=== PATIENT | female | born 1940 | race Caucasian/White ===

== ENCOUNTER → 2017-08-11 | Outpatient (CLI) | payer OTHER ==
--- NOTE | 2017-08-13 13:56 | MG ---
Examination: Bilateral screening mammogram. Clinical history: Routine screening. Technique: Digital CC and MLO views of both breasts were obtained. Computer aided detection analysis was performed and used during the interpretation. Comparison: 08/06/2016. Findings: The breasts are heterogeneously dense, reducing the sensitivity of mammography. Benign-appearing calc ifications and vascular calcifications are noted in the breasts bilaterally. The patient returned for a repeat MLO view of the right breast due to high-density material in the mckeon perior portion of the right breast. Following cleansing of the right axilla, the high-density materia l is no longer visualized. Findings are consistent with deodorant artifact. No suspicious mass, area of architectural distortion or suspicious cluster of microcalcifications is noted. Impression: 1. No mammographic evidence of malignancy. BI-RADS category 2-benign findings. Recommend routine annual screening mammogram. Diagnostic CAD was utilized and reviewed. * 0 (ZERO) - ASSESSMENT INCOMPLETE; ADDITIONAL IMAGING IS NEEDED. * 0C - ASSESSMENT INCOMPLETE, NEEDS ADDITIONAL IMAGING EVALUATION AND/OR PRIOR MAMMOGRAMS FOR COMPARI SON. * 1/1 (ONE) - NEGATIVE. * 2/II (TWO) - BENIGN FINDINGS. * 3/III (THREE) - PROBABLY BENIGN FINDING; SHORT INTERVAL FOLLOW-UP SUGGESTED. * 4/IV (FOUR) - SUSPICIOUS ABNORMALITY; BIOPSY SHOULD BE CONSIDERED. * 5/V - HIGHLY SUSPICIOUS OF MALIGNANCY; BIOPSY SHOULD BE PERFORMED. * 6/IV - KNOWN BIOPSY PROVEN MALIGNANCY-APPROPRIATE ACTION SHOULD BE TAKEN. A NEGATIVE X-RAY REPORT SHOULD NOT DELAY BIOPSY IF A DOMINANT OR CLINICALLY SUSPICIOUS MASS IS PRESENT; 4 TO 8 PERCENT OF CANCERS ARE NOT IDENTIFIED BY X-RAY. A NEGATIVE REPORT MAY REINFORCE THE CLINICAL IMPRESSION. ADENOSIS AND DENSE BREASTS MAY OBSCURE AN UNDERLYING NEOPLASM. Reported By:
== END ==
LOC: RAD 09:23
PROVIDERS: ATTEND Internal Medicine
DX: Z12.31 Encounter for screening mammogram for malignant neoplasm of breast (principal)
CPT/HCPCS: 77067

== ENCOUNTER 2020-04-18 15:48 | Inpatient (IN) ==
[2020-04-18 16:18] VITALS: BMI 20.3
--- NOTE | 2020-04-18 19:12 | DR.GENAD ---
HPI - PCP Primary Care Physician: diane - Complaint/Symptoms Chief Complaint Doctors Comments: Patient states she tested positive for the COVID virus six days ago and she has been taking her medicines but has been weak with a bitter taste in her mouth and problems smelling her food. States she has been taking zithromax, Vit C, Vit D3, Plaquenil and medrol dose pack. She is a patient of Dr. Milton and states her is in the hospital on oxygen with COVID presently. Patient denies tobacco, alcohol or drug usage. She has a cough at times but denies SOb, chest pain, nausea, vomiting or diarrhea. Chief Complaint:: pt tested positive for covid last week c/o bad taste in mouth and feeling weak - COVID-19 Coronavirus risk:travel/contact w/high risk person: Yes Has patient experienced Coronavirus symptoms: Yes Coronavirus symptoms experienced: Fever, Coughing, Shortness of Breath - Source History Provided: Patient - Mode of Arrival Mode of Arrival: Ambulatory - Timing Onset of Chief Complaint: 04/10/20 Came on: Gradually - Duration Duration: Constant How lon Duration: Days - Location Location: weak, generalized - Severity Severity: Moderate - Modifying Factors Worsens:: nothing Improves:: nothing PMH - PMH Past Medical History: Yes Past Medical History: Dyslipidemia, Hypertension Past Surgical History: No - Family History History of Family Medical Conditions: No - Social History Does any household member use tobacco: No Alcohol Use: None Do you use any recreational Drugs:: No Lives With: Family - Travel Risk Coronavirus risk:travel/contact w/high risk person: Yes Has patient experienced Coronavirus symptoms: Yes Coronavirus symptoms experienced: Fever, Coughing, Shortness of Breath - infectious screening In the last 2 months have you had wt loss of >10#?: NO Have you had fever, night sweats or hemotysis?: No Have you traveled outside the country in the last 6 months?: No Isolation: Droplet ROS - Review of Systems Constitutional: No Symptoms Reported, Weakness, Loss of Appetite Eyes: No Symptoms Reported ENTM: No Symptoms Reported Respiratoy: No Symptoms Reported, Dry Cough Cardiovascular: No Symptoms Reported. negative: See HPI, Chest Pain, Edema, Palpitations, Syncope, Cyanosis, Skin Mottling, Other Gastrointestinal/Abdominal: No Symptoms Reported. negative: See HPI, Abdominal Pain, Constipation, Diarrhea, Nausea, Vomiting, Food Intolerance, Other Genitourinary: No Symptoms Reported. negative: See HPI, Discharge, Dysuria, Frequency, Hematuria, Pain, Bleeding, Other Neurological: No Symptoms Reported Musculoskeletal: No Symptoms Reported Integumentary: No Symptoms Reported Hematologic/Lymphatic: No Symptoms Reported Endocrine: No Symptoms Reported Psychiatric: No Symptoms Reported. negative: See HPI, Anxiety, Depression, Hallucinations, Excessive crying, Suicidal, Other PE - General Limitations: No Limitations General Appearance: Alert, In No Apparent Distress - Head Head Exam: Normal Inspection, Atraumatic, Normocephalic - Eyes Eye exam: Normal Appearance, PERRL, EOMI. negative: Scleral Icterus, Conjunctival Injection, Nystagmus, Miosis, Mydrasis, Periorbital Swelling, Periorbital Tenderness, Other - ENT ENT Exam: Normal Exam, Normal Oropharynx, Normal External Ear Exam, Mucous Membranes Moist, TM's Normal Bilaterally External Ear Exam: Normal External Inspection TM/Canal Exam: Bilateral Normal Nose Exam: Normal Nose Exam Mouth Exam: Normal Inspection. negative: Drooling, Trismus, Lip Swelling, Tongue Elevation, Tongue Swelling, Laceration, Other Throat Exam: Normal Inspection. negative: Tonsillar Erythema, Tonsillomegaly, Tonsillar Exudate, R Peritonsillar Mass, L Peritonsillar Mass, Muffled Voice, Other - Neck Neck Exam: Normal Inspection, Full ROM, Trachea Midline. negative: Tenderness, Meningismus, Lymphadenopathy, Thyromegaly, Other - Chest Chest Inspection: Normal Inspection, Symmetric Chest Wall Rise. negative: Tenderness, Rash, Abscess, Other - Respiratory Respiratory Exam: Normal Lung Sounds Bilat Respiratory Exam: Bilateral Clear to Auscultation - Cardiovascular Cardiovascular Exam: Regular Rate, Normal Rhythm, Normal Heart Sounds. negativ e: Bradycardia, Tachycardia, Irregular Rhythm, Systolic Murmur, Diastolic Murmur, Rubs, Gallop, Clicks, JVD, +S1, +S2, +S3, +S4, Other - Abdominal Exam Abdominal Exam: Normal Inspection, Normal Bowel Sounds, Soft. negative: Distention, Tenderness, Guarding, Rebound, Rigidity, Dimnished Bowel Sounds, Hyperactive Bowel Sounds, Hypoactive Bowel Sounds, Organomegaly, Trauma, Incision, Ascites, Mass, Bruit, Pulsatile Mass, Hernia, Other Abdominal Tenderness: negative: RUQ, RLQ, LUQ, LLQ, Epigastrium, Suprapubic, Diffuse, Mild, Moderate, Severe, Other - Extremities Extremities Exam: Normal Inspection, Full ROM, Normal Capillary Refill. negative: Tenderness, Edema, Joint Swelling, Calf Tenderness, Other - Back Back Exam: Normal Inspection, Full ROM. negative: Tenderness, (R) CVA Tenderness, (L) CVA Tenderness, Muscle Spasm, Paraspinal Tenderness, Vertebral Tenderness, Rashes, (R) Sciatic Notch Tenderness, (L) Sciatic Notch Tendern, (R) Straight Leg Raise, (L) Straight Leg Raise, Other - Neurologic Neurological Exam: Alert, Oriented X3, CN II-XII Intact, Normal Gait, Reflexes Normal - Psychiatric Psychiatric Exam: Normal Affect, Normal Mood. negative: Depressed, Agitated, Anxious, Flat Affect, Manic, Homicidal Ideation, Suicidal Ideation, Other - Skin Skin Exam: Warm, Dry, Intact, Normal Color. negative: Rash, Cyanosis, Di aphoresis, Erythema, Pallor, Mottled, Other - Vital Signs Vitals: Temperature 99.9 F Pulse Rate 87 Respiratory Rate 20 Blood Pressure 132/62 O2 Sat by Pulse Oximetry 88 ROR - Labs Reviewed Result Diagrams: 04/20/20 04:05 04/20/20 04:05 - Labs Reviewed Laboratory: WBC 10.1 X10^3/uL (3.6-10.0) H 04/18/20 20:10 RBC 4.19 X10^6/uL (3.5-5.4) 04/18/20 20:10 Hgb 14.2 g/dL (12.0-16.0) 04/18/20 20:10 Hct 40.7 % (36.0-47.0) 04/18/20 20:10 MCV 97.2 fL (80.0-100.0) 04/18/20 20:10 MCH 33.8 pg (27.0-34.0) 04/18/20 20:10 MCHC 34.8 g/dL (33.0-35.0) 04/18/20 20:10 RDW 12.6 % (11.6-16.5) 04/18/20 20:10 Plt Count 237 X10^3/uL (150.0-450.0) 04/18/20 20:10 MPV 7.1 fL (7.4-11.0) L 04/18/20 20:10 Neut % (Auto) 76.6 % (42.0-75.0) H 04/18/20 20:10 Lymph % (Auto) 17.2 % (21.0-51.0) L 04/18/20 20:10 [place] % (Auto) 5.9 % (0.0-13.0) 04/18/20 20:10 Eos % (Auto) 0.0 % (0.9-2.9) L 04/18/20 20:10 Baso % (Auto) 0.3 % (0.2-1.0) 04/18/20 20:10 Neut # (Auto) 7.7 x10^3/uL (2.2-4.8) H 04/18/20 20:10 Lymph # (Auto) 1.7 X10^3/uL (1.3-2.9) 04/18/20 20:10 [place] # (Auto) 0.6 x10^3/uL (0.3-0.8) 04/18/20 20:10 Eos # (Auto) 0.0 x10^3/uL (0.0-0.2) 04/18/20 20:10 Baso # (Auto) 0.0 X10^3/uL (0.0-0.1) 04/18/20 20:10 Absolute Nucleated RBC 0.1 /100WBC 04/18/20 20:10 PT 13.6 SECONDS (11.8-14.3) 04/18/20 20:10 INR Target Range - 04/18/20 20:10 INR 1.07 (0.8-1.3) 04/18/20 20:10 APTT 37.1 SECONDS (22.9-36.5) H 04/18/20 20:10 PTT Comment - 04/18/20 20:10 Sample Site Lb 04/18/20 20:25 ABG pH 7.450 (7.35-7.45) 04/18/20 20:25 ABG pCO2 42.0 mmHg (35.0-45.0) 04/18/20 20:25 ABG pO2 54.0 mmHg (80.0-100.0) L 04/18/20 20:25 ABG HCO3 29.2 mmol/L (22-26) H 04/18/20 20:25 ABG O2 Saturation 89.0 % (90-100) L 04/18/20 20:25 ABG Base Excess 4.7 mmol/L (-2.0-2.0) H 04/18/20 20:25 Bandar Test N/a 04/18/20 20:25 A-a Gradient 43.0 mmHg 04/18/20 20:25 FiO2 21.0 04/18/20 20:25 Blood Gas Comments Fatemeh well ae 04/18/20 20:25 Opioid - Opioid Risk Tool Age (Giovany box if 16-45): No History of Preadolescent Sexual Abuse: No Total: 0 Total Score Risk Category: Low Risk - Diagnosis Discharge Problem: Bilateral interstitial pneumonia, COVID-19, Hypoxia Sepsis Qualifiers: Sepsis type: sepsis due to unspecified organism Sepsis acute organ dysfunction status: with acute organ dysfunction Severe sepsis acute organ dysfunction type: acute respiratory failure Acute respiratory failure type: with hypoxia Severe sepsis shock status: without septic shock Qualified Code(s): A41.9 - Sepsis, unspecified organism - Discharge Plan Disposition: ADMITTED INPATIENT Condition: Stable
[2020-04-18] MEDS ORDERED: NS 1000 ML 1,000 ML IV SCH (20:00)
--- NOTE | 2020-04-18 20:10 | RAD ---
CHEST, 1 VIEWHISTORY: covid chest pain sobStudy: Single view of the chest.Comparison:NoneFindings:The cardiomediastinal silhouette is normal. Bilateral interstitial prominence, possible early alveolar infiltrates. No focal consolidations, pleural effusions or pneumothorax. Osseous structures demonstrate no acute abnormality. Bilateral hyper expansion.IMPRESSION:1. Bilateral interstitial prominence and early alveolar infiltrates. Findings may represent atypical infection, including viral etiologies.Electronically signed by: DAWSON CHARLES (Apr 18, 2020 20:09:20)
[2020-04-18 20:17] LABS: BASOPHILS % (AUTO) 0.3 % (0.2-1.0); HEMATOCRIT 40.7 % (36.0-47.0); HEMOGLOBIN 14.2 g/dL (12.0-16.0); LYMPHOCYTES # (AUTO) 1.7 X10^3/uL (1.3-2.9); LYMPHOCYTES % (AUTO) 17.2 % (21.0-51.0); MEAN CORPUSCULAR HEMOGLOBIN 33.8 pg (27.0-34.0); MEAN CORPUSCULAR HGB CONC 34.8 g/dL (33.0-35.0); MEAN CORPUSCULAR VOLUME 97.2 fL (80.0-100.0); MEAN PLATELET VOLUME 7.1 fL (7.4-11.0); MONOCYTES # (AUTO) 0.6 x10^3/uL (0.3-0.8); MONOCYTES % (AUTO) 5.9 % (0.0-13.0); NEUTROPHILS # (AUTO) 7.7 x10^3/uL (2.2-4.8); NEUTROPHILS % (AUTO) 76.6 % (42.0-75.0); PLATELET COUNT 237 X10^3/uL (150.0-450.0); RED BLOOD COUNT 4.19 X10^6/uL (3.5-5.4); RED CELL DISTRIBUTION WIDTH 12.6 % (11.6-16.5); WHITE BLOOD COUNT 10.1 X10^3/uL (3.6-10.0)
[2020-04-18 20:32] LABS: ABG BASE EXCESS 4.7 mmol/L (-2.0-2.0); ABG HCO3 29.2 mmol/L (22-26)
[2020-04-18 20:33] LABS: BLOOD UREA NITROGEN 22 mg/dL (7-18); CALCIUM 8.6 mg/dL (8.5-10.1); CARBON DIOXIDE 30.2 mmol/L (21-32); CHLORIDE 99 mmol/L (98-107); CREATININE 0.97 mg/dL (0.55-1.02); SODIUM 136 mmol/L (136-145); TROPONIN I < 0.02 ng/mL (0-1.5); eGFR NON BLACK RACES 59 (>60)
[2020-04-18 20:47] LABS: ALANINE AMINOTRANSFERASE 43 Units/L (12-78); ALKALINE PHOSPHATASE 62 Units/L (46-116); ASPARTATE AMINO TRANSFERASE 42 Units/L (15-37); CKMB % 0.8 % (<4); COR CA(FOR HYPOALB) 9.4 mg/dL (8.5-10.1); CREATINE KINASE 131 Units/L (26-192); CREATINE KINASE MB < 1.0 ng/mL (0-4.0); TOTAL PROTEIN 6.9 g/dL (6.4-8.2)
[2020-04-18] MEDS ORDERED: NS 1000 ML 1,000 ML ONE (21:29)
[2020-04-18] MEDS ORDERED: ROCEPHIN VIAL 1 GRAM 1 G in NS 100 ML IV + SPIKE MINIBAG* 100 ML IV SCH (23:44)
[2020-04-19] MEDS: NS 1000 ML 1,000 ML IV SCH (01:21)
[2020-04-19] MEDS: ASCORBIC ACID INJ MULTI-DOSE VIAL 1,500 MG in NS 100 ML IV 100 ML IV SCH ×2 (03:13→09:05)
[2020-04-19] MEDS ORDERED: DUONEB 0.5 MG/3 MG (3 mL) NEB ONE (03:56)
[2020-04-19 05:24] LABS: BASOPHILS % (AUTO) 0.2 % (0.2-1.0); HEMATOCRIT 34.9 % (36.0-47.0); HEMOGLOBIN 12.2 g/dL (12.0-16.0); LYMPHOCYTES # (AUTO) 1.9 X10^3/uL (1.3-2.9); LYMPHOCYTES % (AUTO) 21.7 % (21.0-51.0); MEAN CORPUSCULAR HEMOGLOBIN 34.4 pg (27.0-34.0); MEAN CORPUSCULAR VOLUME 98.1 fL (80.0-100.0); MEAN PLATELET VOLUME 8.2 fL (7.4-11.0); MONOCYTES # (AUTO) 0.5 x10^3/uL (0.3-0.8); MONOCYTES % (AUTO) 6.1 % (0.0-13.0); NEUTROPHILS # (AUTO) 6.1 x10^3/uL (2.2-4.8); PLATELET COUNT 208 X10^3/uL (150.0-450.0); RED BLOOD COUNT 3.56 X10^6/uL (3.5-5.4); RED CELL DISTRIBUTION WIDTH 12.3 % (11.6-16.5); WHITE BLOOD COUNT 8.5 X10^3/uL (3.6-10.0)
[2020-04-19 05:37] LABS: ALANINE AMINOTRANSFERASE 35 Units/L (12-78); ALBUMIN 2.2 g/dL (3.4-5.0); ALKALINE PHOSPHATASE 47 Units/L (46-116); ASPARTATE AMINO TRANSFERASE 38 Units/L (15-37); BLOOD UREA NITROGEN 18 mg/dL (7-18); CALCIUM 7.8 mg/dL (8.5-10.1); CARBON DIOXIDE 28.3 mmol/L (21-32); CHLORIDE 103 mmol/L (98-107); COR CA(FOR HYPOALB) 9.2 mg/dL (8.5-10.1); CREATININE 0.83 mg/dL (0.55-1.02); SODIUM 138 mmol/L (136-145); TOTAL PROTEIN 5.5 g/dL (6.4-8.2); eGFR NON BLACK RACES > 60 (>60)
[2020-04-19] MEDS: DUONEB 0.5 MG/3 MG (3 mL) NEB SCH ×3 (05:40→21:20)
[2020-04-19] MEDS ORDERED: TYLENOL 325 MG TAB PO PRN (05:50)
[2020-04-19] MEDS ORDERED: TYLENOL 325 MG TAB PO ONE (05:57)
[2020-04-19] MEDS ORDERED: ZITHROMAX INJ 500 MG VIAL 500 MG in NS 250 ML IV 250 ML IV SCH (09:00)
[2020-04-19] MEDS ORDERED: PLAQUENIL PO SCH (09:00)
[2020-04-19] MEDS ORDERED: DECADRON TAB PO SCH (09:00)
[2020-04-19] MEDS ORDERED: VITAMIN A PO SCH (09:00)
[2020-04-19] MEDS ORDERED: VITAMIN D (1.25MG) PO SCH (09:00)
[2020-04-19] MEDS: ZINC SULFATE PO SCH ×2 (09:03→20:58)
[2020-04-19] MEDS: TRICOR TAB 160 MG PO SCH (09:08)
[2020-04-19] MEDS ORDERED: REMDESIVIR (INVESTIGATIONAL DRUG GS-5734) 200 MG in NS 250 ML IV 250 ML IV NR (09:35)
[2020-04-19] MEDS: PULMICORT NEB TX 0.5 MG NEB SCH ×2 (09:45→21:20)
[2020-04-19] MEDS ORDERED: MUCOMYST 20% 200 MG/ML NEB SCH (09:45)
[2020-04-19] MEDS: LOVENOX INJ 30 MG SYR SC SCH ×2 (10:46→20:57)
--- NOTE | 2020-04-19 10:49 | DR.H&P ---
H&P - History & Physical for Day of: H&P Date: 04/18/20 - Chief Complaint Chief Complaint: FEVER, COUGH, SHORTNESS OF BREATH, WEAKNESS, FATIGUES, AND LOSS OF TASTE AND SMELL - History of Present Illness History of Present Illness: IS A 79 YEAR OLD PATIENT OF OURS. SHE PRESENTED TO THE ER WITH COMPLAINTS OF FEVER, COUGH, SHORTNESS OF BREATH, WEAKNESS, FATIGUES, AND LOSS OF TASTE AND SMELL. SHE ADMITS TO TESTING POSITIVE FOR COVID 19 ABOUT A WEEK AGO. HER SPOUSE IS CURRENTLY HOSPITALIZED FOR COVID WELL. SHE HAS BEEN TAKING ZITHROMAX, VITAMIN C, VITAMIN D3, PLAQUENIL, AND A MEDROL DOSEPACK WITHOUT IMPROVEMENT IN SYMPTOMS. HER PMH INCLUDES DYSLIPIDEMIA AND HYPERTENSION. ON ARRIVAL TO THE ER, VITALS WERE 99.9-87-20-88%RA-132/62. LABS WERE OBTAINED. ABNORMAL LAB VALUES INCLUDE THE FOLLOWING: WBC 10.1, BUN 22, GLUCOSE 105, FERRITIN 9507, AST 42, CRP 122.50, ALBUMIN 3.0. ABG WAS OBTAINED AND REVEALED: PH 7.450, PC02 42, P02 54, HC03 29.2, 02 SAT 89, FI02 21. A CHEST XRAY WAS OBTAINED AND REVEALED: 1. Bilateral interstitial prominence and early alveolar infiltrates. Findings may represent atypical infection, including viral etiologies. SHE WAS ADMITTED TO THE HOSPITAL FOR FURTHER EVALUATION AND TREATMENT OF PNEUMONIA DUE TO COVID-19 AND HYPOXIA. SHE WAS PLACED ON SUPPLEMENTAL OXYGEN AT 2L/MIN. SHE WAS STARTED ON NS AT 20 ML/HR, LEVAQUIN 500MG IV DAILY, REMDESIVIR 200MG IV X 1, THEN 100 MG IV DAILY, DUONEBS TID, PULMICORT NEBS BID, MUCOMYST IN NEBS BID, TESSALON PERLES TID, ROBITUSSIN DM 10 ML QID, ZINC 200MG PO BID, SOLU-MEDROL 80MG IV Q8H, AND LOVENOX 30MG SC BID. OTHERWISE, WE PLAN TO FOLLOW UP WITH AM LABS, CHEST XRAY, ABG, AND CONTINUE TO MONITOR. - Past Medical History Past Medical History: Dyslipidemia, Hypertension - Social History Does any household member use tobacco: No Alcohol Use: None Drug Use: None - Medications Home Medications: No Known Drug Allergies Allergy (Verified 04/18/20 16:12) CONTINUE taking the following medications azithromycin 500 mg PO DAILY 04/18/20 [History] benzonatate 200 mg PO Q8H PRN 04/18/20 [History] calcium phosphate-vitamin D3 [Caltrate Gummy Bites] 1 tab PO DAILY 04/18/20 [History] cefdinir 300 mg PO BID 04/18/20 [History] cyanocobalamin (vitamin B-12) [Vitamin B-12] 1,000 mcg PO DAILY 04/18/20 [History] ferrous gluconate 324 mg PO DAILY 04/18/20 [History] hydroxychloroquine 200 mg PO BID 04/18/20 [History] lisinopril 10 mg PO DAILY 04/18/20 [History] lutein 6 mg PO DAILY 04/18/20 [History] methylprednisolone 4 mg PO DIRECTED 04/18/20 [History] simvastatin 40 mg PO HS 04/18/20 [History] vit B1 [id number] [B Complex w-Vit C] 1 tab PO DAILY 04/18/20 [History] ascorbic acid (vitamin C) [Vitamin C With [place] Hips] 1,000 mg PO DAILY 04/19/20 [History] - Review of Systems Constitutional: See HPI, Fever, Weakness, Other (LOSS OF TASTE AND SMELL ) Eyes: No Symptoms Reported ENT: No Symptoms Reported Respiratory: See HPI, Cough, Shortness of Breath, Wheezing Cardiovascular: No Symptoms Reported Gastrointestinal: No Symptoms Reported Genitourinary: No Symptoms Reported Musculoskeletal: No Symptoms Reported Skin: No Symptoms Reported Neurological: Weakness - Physical Exam Vital Signs: Temperature 98.5 F Pulse Rate [Left Radial] 69 Pulse Rate 75 Respiratory Rate 18 Blood Pressure [Left Arm] 116/56 Blood Pressure 132/62 O2 Sat by Pulse Oximetry 98 Oriented: Normal Eyes: Normal Ear: Normal Nose: Normal Throat: Normal Respiratory: Wheezes Throughout Cardiovascular: Normal : Normal Auscultation: Bowel Sounds: Normal Palpation: Normal Tenderness: Normal Skin: Normal Musculoskeletal: Normal Psychiatric: Normal Mood Description: Calm Affect: Normal Speech Pattern: Clear - Assessment/Plan (1) Pneumonia due to 2019 novel coronavirus Status: Acute Plan: NS AT 20 ML/HR, LEVAQUIN 500MG IV DAILY, REMDESIVIR 200MG IV X 1, THEN 100 MG IV DAILY, DUONEBS TID, PULMICORT NEBS BID, MUCOMYST IN NEBS BID, TESSALON PERLES TID, ROBITUSSIN DM 10 ML QID, ZINC 200MG PO BID, SOLU-MEDROL 80MG IV Q8H, AND LOVENOX 30MG SC BID. (2) Hypoxia Status: Acute - Allergies Allergies/Adverse Reactions: Allergies Allergy/AdvReac Type Severity Reaction Status Date / Time No Known Drug Allergies Allergy Verified 04/18/20 16:12
[2020-04-19] MEDS: LEVAQUIN PREMIX IV 500 MG 500 MG/100 ML BAG IV SCH (11:01)
[2020-04-19] MEDS: TESSALON PERLES PO SCH ×3 (11:01→21:00)
[2020-04-19] MEDS: ROBITUSSIN DM PO SCH ×4 (11:02→21:00)
[2020-04-19] MEDS: SOLU-Medrol 40 MG VIAL IVP SCH ×2 (14:28→21:00)
[2020-04-19] MEDS: TAB-A-VITE PO SCH (14:28)
[2020-04-19] MEDS: FERROUS GLUCONATE PO SCH (14:28)
[2020-04-19] MEDS: ZOCOR TAB 40 MG PO SCH (20:58)
[2020-04-19] MEDS: MUCOMYST (RESPIRATORY USE ONLY) NEB SCH (21:20)
[2020-04-20] MEDS: NS 1000 ML 1,000 ML IV SCH (01:46)
[2020-04-20] MEDS: SOLU-Medrol 40 MG VIAL IVP SCH ×3 (05:16→21:32)
[2020-04-20] MEDS: TESSALON PERLES PO SCH ×3 (05:16→21:34)
[2020-04-20 05:41] LABS: BASOPHILS % (AUTO) 0.2 % (0.2-1.0); HEMOGLOBIN 12.7 g/dL (12.0-16.0); LYMPHOCYTES # (AUTO) 0.7 X10^3/uL (1.3-2.9); LYMPHOCYTES % (AUTO) 11.4 % (21.0-51.0); MEAN CORPUSCULAR HEMOGLOBIN 33.8 pg (27.0-34.0); MEAN CORPUSCULAR HGB CONC 34.2 g/dL (33.0-35.0); MEAN CORPUSCULAR VOLUME 98.6 fL (80.0-100.0); MEAN PLATELET VOLUME 8.5 fL (7.4-11.0); MONOCYTES # (AUTO) 0.1 x10^3/uL (0.3-0.8); NEUTROPHILS % (AUTO) 86.4 % (42.0-75.0); PLATELET COUNT 216 X10^3/uL (150.0-450.0); RED BLOOD COUNT 3.75 X10^6/uL (3.5-5.4); RED CELL DISTRIBUTION WIDTH 12.3 % (11.6-16.5); WHITE BLOOD COUNT 5.8 X10^3/uL (3.6-10.0)
[2020-04-20 05:50] LABS: ABG ALLEN TEST POS; ABG BASE EXCESS 4.2 mmol/L (-2.0-2.0); ABG HCO3 28.4 mmol/L (22-26)
[2020-04-20 05:58] LABS: ALANINE AMINOTRANSFERASE 50 Units/L (12-78); ALBUMIN 2.1 g/dL (3.4-5.0); ALKALINE PHOSPHATASE 58 Units/L (46-116); ASPARTATE AMINO TRANSFERASE 47 Units/L (15-37); BLOOD UREA NITROGEN 16 mg/dL (7-18); CALCIUM 8.1 mg/dL (8.5-10.1); CARBON DIOXIDE 29.6 mmol/L (21-32); CHLORIDE 104 mmol/L (98-107); COR CA(FOR HYPOALB) 9.6 mg/dL (8.5-10.1); COR NA(FOR HYPERGLY) 140 mmol/L (136-145); CREATININE 0.74 mg/dL (0.55-1.02); SODIUM 139 mmol/L (136-145); TOTAL PROTEIN 5.7 g/dL (6.4-8.2); eGFR NON BLACK RACES > 60 (>60)
[2020-04-20] MEDS: DUONEB 0.5 MG/3 MG (3 mL) NEB SCH ×3 (06:21→21:20)
--- NOTE | 2020-04-20 07:19 | RAD ---
HISTORYSOB sepsisSTUDYPortable AP [id number]/03/2020FINDINGSContinued normal heart size. There is slight apparent interval incre ase in pulmonary infiltrates in the periphery of the right lung and in the left lower lobe. The left upper lobe remains clear. No pleural fluid or extrapulmonary air accumulation is demonstrated.IMPRESS IONPersistent and increasing bilateral infiltrates/pneumonia.Electronically signed by: HALEY BAKER (Apr 20, 2020 07:18:46)
[2020-04-20] MEDS ORDERED: VITAMIN A PO SCH (09:00)
[2020-04-20] MEDS ORDERED: VITAMIN D3 125 mcg (5,000 UNITS) PO SCH (09:00)
[2020-04-20] MEDS: PULMICORT NEB TX 0.5 MG NEB SCH ×3 (10:12→21:20)
[2020-04-20] MEDS: MUCOMYST (RESPIRATORY USE ONLY) NEB SCH ×3 (10:12→21:20)
[2020-04-20] MEDS ORDERED: PHARMACY CONSULT - TPN XX SCH (11:00)
[2020-04-20] MEDS ORDERED: PROCALAMINE 3 % 1,000 ML IV ONE (11:02)
[2020-04-20] MEDS: LEVAQUIN PREMIX IV 500 MG 500 MG/100 ML BAG IV SCH (11:10)
[2020-04-20] MEDS: PROCALAMINE 3 % 1,000 ML IV SCH (11:10)
[2020-04-20] MEDS: REMDESIVIR (INVESTIGATIONAL DRUG GS-5734) 100 MG in NS 250 ML IV 250 ML IV SCH (11:10)
[2020-04-20] MEDS: ZINC SULFATE PO SCH ×2 (11:10→21:34)
[2020-04-20] MEDS: LOVENOX INJ 30 MG SYR SC SCH ×2 (11:11→21:33)
[2020-04-20] MEDS: FERROUS GLUCONATE PO SCH (11:11)
[2020-04-20] MEDS: TAB-A-VITE PO SCH (11:12)
[2020-04-20] MEDS: ROBITUSSIN DM PO SCH ×4 (11:13→21:34)
[2020-04-20] MEDS: TRICOR TAB 160 MG PO SCH (11:13)
[2020-04-20] MEDS: ZOCOR TAB 40 MG PO SCH (21:33)
[2020-04-21] MEDS: NS 1000 ML 1,000 ML IV SCH ×2 (02:41→22:59)
[2020-04-21] MEDS: DUONEB 0.5 MG/3 MG (3 mL) NEB SCH ×3 (05:00→22:20)
[2020-04-21 05:04] LABS: ABG ALLEN TEST POS; ABG BASE EXCESS 5.5 mmol/L (-2.0-2.0); ABG HCO3 29.9 mmol/L (22-26)
[2020-04-21] MEDS: SOLU-Medrol 40 MG VIAL IVP SCH ×3 (05:06→21:02)
[2020-04-21] MEDS: TESSALON PERLES PO SCH ×3 (05:07→21:03)
--- NOTE | 2020-04-21 05:35 | RAD ---
HISTORYSOBSTUDYCHEST, 1 [id number]/05/2020FINDINGSThe trachea is midline. The cardiac silhouette is stable. Right middle and lower lung zone near confluent opacity with patchy bilateral basilar opacity/infiltrates, not appreciably changed compared to prior exam. No pneumothorax.. The bony thorax is stable.IMPRESSIONNo appreciable interval change.Electronically signed by: Christy Hatch (Apr 21, 2020 05:35:12)
[2020-04-21 06:28] LABS: ALANINE AMINOTRANSFERASE 54 Units/L (12-78); ALKALINE PHOSPHATASE 54 Units/L (46-116); ASPARTATE AMINO TRANSFERASE 43 Units/L (15-37); BLOOD UREA NITROGEN 18 mg/dL (7-18); CHLORIDE 104 mmol/L (98-107); COR CA(FOR HYPOALB) 9.6 mg/dL (8.5-10.1); COR NA(FOR HYPERGLY) 139 mmol/L (136-145); CREATININE 0.71 mg/dL (0.55-1.02); SODIUM 137 mmol/L (136-145); TOTAL PROTEIN 5.4 g/dL (6.4-8.2); eGFR NON BLACK RACES > 60 (>60)
[2020-04-21 06:31] LABS: BASOPHILS % (AUTO) 0.1 % (0.2-1.0); HEMATOCRIT 35.8 % (36.0-47.0); HEMOGLOBIN 12.3 g/dL (12.0-16.0); LYMPHOCYTES # (AUTO) 0.8 X10^3/uL (1.3-2.9); LYMPHOCYTES % (AUTO) 5.4 % (21.0-51.0); MEAN CORPUSCULAR HEMOGLOBIN 33.5 pg (27.0-34.0); MEAN CORPUSCULAR HGB CONC 34.4 g/dL (33.0-35.0); MEAN CORPUSCULAR VOLUME 97.4 fL (80.0-100.0); MEAN PLATELET VOLUME 8.7 fL (7.4-11.0); MONOCYTES # (AUTO) 0.4 x10^3/uL (0.3-0.8); MONOCYTES % (AUTO) 2.8 % (0.0-13.0); NEUTROPHILS # (AUTO) 13.9 x10^3/uL (2.2-4.8); NEUTROPHILS % (AUTO) 91.7 % (42.0-75.0); PLATELET COUNT 264 X10^3/uL (150.0-450.0); RED BLOOD COUNT 3.68 X10^6/uL (3.5-5.4); RED CELL DISTRIBUTION WIDTH 12.3 % (11.6-16.5); WHITE BLOOD COUNT 15.2 X10^3/uL (3.6-10.0)
[2020-04-21 08:22] LABS: BAND NEUTROPHILS % 4 % (0-10); PLATELET MORPHOLOGY COMMENT NORMAL (NORMAL)
[2020-04-21] MEDS: FERROUS GLUCONATE PO SCH (08:55)
[2020-04-21] MEDS: LOVENOX INJ 30 MG SYR SC SCH ×2 (08:56→20:42)
[2020-04-21] MEDS: LEVAQUIN PREMIX IV 500 MG 500 MG/100 ML BAG IV SCH (08:56)
[2020-04-21] MEDS: TAB-A-VITE PO SCH (08:57)
[2020-04-21] MEDS: ROBITUSSIN DM PO SCH ×4 (08:57→20:43)
[2020-04-21] MEDS: ZINC SULFATE PO SCH ×2 (08:58→20:43)
[2020-04-21] MEDS: TRICOR TAB 160 MG PO SCH (08:58)
[2020-04-21] MEDS: PULMICORT NEB TX 0.5 MG NEB SCH ×2 (10:00→22:20)
[2020-04-21] MEDS: REMDESIVIR (INVESTIGATIONAL DRUG GS-5734) 100 MG in NS 250 ML IV 250 ML IV SCH (11:15)
[2020-04-21] MEDS ORDERED: TESSALON PERLES PO ONE (14:13)
[2020-04-21] MEDS: MUCOMYST (RESPIRATORY USE ONLY) NEB SCH ×3 (14:26→22:20)
[2020-04-21] MEDS: PROCALAMINE 3 % 1,000 ML IV SCH (20:42)
[2020-04-21] MEDS: ZESTRIL TAB 10 MG PO SCH (20:43)
[2020-04-21] MEDS: ZOCOR TAB 40 MG PO SCH (20:43)
[2020-04-22] MEDS: SOLU-Medrol 40 MG VIAL IVP SCH ×3 (05:02→21:51)
[2020-04-22] MEDS: TESSALON PERLES PO SCH ×3 (05:03→21:51)
[2020-04-22 05:29] LABS: BASOPHILS % (AUTO) 0.1 % (0.2-1.0); HEMATOCRIT 35.8 % (36.0-47.0); HEMOGLOBIN 12.2 g/dL (12.0-16.0); LYMPHOCYTES # (AUTO) 0.6 X10^3/uL (1.3-2.9); MEAN CORPUSCULAR HEMOGLOBIN 33.5 pg (27.0-34.0); MEAN CORPUSCULAR HGB CONC 34.1 g/dL (33.0-35.0); MEAN CORPUSCULAR VOLUME 98.3 fL (80.0-100.0); MEAN PLATELET VOLUME 8.9 fL (7.4-11.0); MONOCYTES # (AUTO) 0.4 x10^3/uL (0.3-0.8); MONOCYTES % (AUTO) 2.5 % (0.0-13.0); NEUTROPHILS # (AUTO) 15.1 x10^3/uL (2.2-4.8); NEUTROPHILS % (AUTO) 93.4 % (42.0-75.0); PLATELET COUNT 264 X10^3/uL (150.0-450.0); RED BLOOD COUNT 3.64 X10^6/uL (3.5-5.4); RED CELL DISTRIBUTION WIDTH 12.2 % (11.6-16.5); WHITE BLOOD COUNT 16.2 X10^3/uL (3.6-10.0)
[2020-04-22 05:32] LABS: ALANINE AMINOTRANSFERASE 56 Units/L (12-78); ALBUMIN 1.8 g/dL (3.4-5.0); ALKALINE PHOSPHATASE 71 Units/L (46-116); ASPARTATE AMINO TRANSFERASE 41 Units/L (15-37); BLOOD UREA NITROGEN 19 mg/dL (7-18); CALCIUM 7.7 mg/dL (8.5-10.1); CARBON DIOXIDE 29.6 mmol/L (21-32); CHLORIDE 105 mmol/L (98-107); COR CA(FOR HYPOALB) 9.5 mg/dL (8.5-10.1); COR NA(FOR HYPERGLY) 140 mmol/L (136-145); CREATININE 0.64 mg/dL (0.55-1.02); SODIUM 138 mmol/L (136-145); TOTAL PROTEIN 4.9 g/dL (6.4-8.2); eGFR NON BLACK RACES > 60 (>60)
[2020-04-22 05:43] LABS: ABG BASE EXCESS 6.8 mmol/L (-2.0-2.0)
[2020-04-22] MEDS: DUONEB 0.5 MG/3 MG (3 mL) NEB SCH ×3 (05:45→21:55)
[2020-04-22 05:46] LABS: ABG ALLEN TEST POSS; ABG HCO3 31.3 mmol/L (22-26)
[2020-04-22 05:51] LABS: PLATELET MORPHOLOGY COMMENT NORMAL (NORMAL)
--- NOTE | 2020-04-22 08:14 | RAD ---
HISTORYShort of breathSTUDYCHEST, 1 [id number]/06/2020FINDINGSThe trachea is midline. The cardiac silhouette is within normal limits. Patchy bilateral interstitial and airspace opacities, right greater than left, are grossly unchanged. There is no significant pleural effusion or evidence of pneumothorax. The bony thorax is grossly unremarkable.IMPRESSIONUnchanged exam compared with the previous day.Electronically signed by: ANT HOLLIS (Apr 22, 2020 08:14:14)
[2020-04-22] MEDS: FERROUS GLUCONATE PO SCH (08:54)
[2020-04-22] MEDS: LEVAQUIN PREMIX IV 500 MG 500 MG/100 ML BAG IV SCH (08:55)
[2020-04-22] MEDS: LOVENOX INJ 30 MG SYR SC SCH ×2 (08:55→21:48)
[2020-04-22] MEDS: ROBITUSSIN DM PO SCH ×4 (08:56→21:52)
[2020-04-22] MEDS: REMDESIVIR (INVESTIGATIONAL DRUG GS-5734) 100 MG in NS 250 ML IV 250 ML IV SCH (08:56)
[2020-04-22] MEDS: TRICOR TAB 160 MG PO SCH (08:57)
[2020-04-22] MEDS: TAB-A-VITE PO SCH (08:57)
[2020-04-22] MEDS: ZINC SULFATE PO SCH ×2 (08:58→21:52)
[2020-04-22] MEDS: PULMICORT NEB TX 0.5 MG NEB SCH ×2 (09:20→21:55)
[2020-04-22] MEDS: MUCOMYST (RESPIRATORY USE ONLY) NEB SCH ×4 (09:20→21:55)
[2020-04-22] MEDS: PROCALAMINE 3 % 1,000 ML IV SCH (11:35)
[2020-04-22] MEDS: ZOCOR TAB 40 MG PO SCH (21:51)
[2020-04-22] MEDS: ZESTRIL TAB 10 MG PO SCH (21:51)
[2020-04-22] MEDS ORDERED: NS 500 ML IV 500 ML IV ONE (22:09)
[2020-04-23] MEDS: NS 1000 ML 1,000 ML IV SCH (03:32)
[2020-04-23] MEDS: SOLU-Medrol 40 MG VIAL IVP SCH (05:33)
[2020-04-23] MEDS: TESSALON PERLES PO SCH (05:34)
[2020-04-23 06:00] LABS: ABG BASE EXCESS 8.8 mmol/L (-2.0-2.0)
[2020-04-23 06:01] LABS: ABG ALLEN TEST POS; ABG HCO3 32.7 mmol/L (22-26)
[2020-04-23 06:11] LABS: BASOPHILS % (AUTO) 0.1 % (0.2-1.0); EOSINOPHILS % (AUTO) 0.1 % (0.9-2.9); HEMATOCRIT 38.5 % (36.0-47.0); HEMOGLOBIN 13.2 g/dL (12.0-16.0); LYMPHOCYTES # (AUTO) 0.5 X10^3/uL (1.3-2.9); LYMPHOCYTES % (AUTO) 3.6 % (21.0-51.0); MEAN CORPUSCULAR HEMOGLOBIN 33.4 pg (27.0-34.0); MEAN CORPUSCULAR HGB CONC 34.2 g/dL (33.0-35.0); MEAN CORPUSCULAR VOLUME 97.6 fL (80.0-100.0); MEAN PLATELET VOLUME 8.8 fL (7.4-11.0); MONOCYTES # (AUTO) 0.5 x10^3/uL (0.3-0.8); MONOCYTES % (AUTO) 3.9 % (0.0-13.0); NEUTROPHILS # (AUTO) 12.5 x10^3/uL (2.2-4.8); NEUTROPHILS % (AUTO) 92.3 % (42.0-75.0); PLATELET COUNT 266 X10^3/uL (150.0-450.0); RED BLOOD COUNT 3.95 X10^6/uL (3.5-5.4); RED CELL DISTRIBUTION WIDTH 12.1 % (11.6-16.5); WHITE BLOOD COUNT 13.5 X10^3/uL (3.6-10.0)
--- NOTE | 2020-04-23 06:36 | RAD ---
HISTORYShort of breathSTUDYCHEST, 1 VIEWCOMPARISONOne day priorTECHNIQUEAP view of the chestFINDINGSCardiomediastinal contours stable. No significant change in right worse than left scattered airspace disease. Cannot exclude small pleural effusions. No pneumothorax.IMPRESSIONNo significant change.Electronically signed by: Jalil Pride (Apr 23, 2020 06:36:23)
[2020-04-23 06:38] LABS: ALANINE AMINOTRANSFERASE 59 Units/L (12-78); ALKALINE PHOSPHATASE 56 Units/L (46-116); ASPARTATE AMINO TRANSFERASE 37 Units/L (15-37); BLOOD UREA NITROGEN 18 mg/dL (7-18); CALCIUM 7.7 mg/dL (8.5-10.1); CARBON DIOXIDE 29.3 mmol/L (21-32); CHLORIDE 103 mmol/L (98-107); COR CA(FOR HYPOALB) 9.3 mg/dL (8.5-10.1); COR NA(FOR HYPERGLY) 139 mmol/L (136-145); CREATININE 0.56 mg/dL (0.55-1.02); SODIUM 137 mmol/L (136-145); eGFR NON BLACK RACES > 60 (>60)
[2020-04-23 07:22] LABS: PLATELET MORPHOLOGY COMMENT NORMAL (NORMAL)
[2020-04-23] MEDS: FERROUS GLUCONATE PO SCH (09:01)
[2020-04-23] MEDS: LOVENOX INJ 30 MG SYR SC SCH (09:02)
[2020-04-23] MEDS: LEVAQUIN PREMIX IV 500 MG 500 MG/100 ML BAG IV SCH (09:02)
[2020-04-23] MEDS: ROBITUSSIN DM PO SCH (09:06)
[2020-04-23] MEDS: TAB-A-VITE PO SCH (09:07)
[2020-04-23] MEDS: TRICOR TAB 160 MG PO SCH (09:09)
[2020-04-23] MEDS: ZINC SULFATE PO SCH (09:10)
[2020-04-23] MEDS: MUCOMYST (RESPIRATORY USE ONLY) NEB SCH (09:45)
[2020-04-23] MEDS: PULMICORT NEB TX 0.5 MG NEB SCH (09:45)
[2020-04-23] MEDS: DUONEB 0.5 MG/3 MG (3 mL) NEB SCH (09:45)
[2020-04-23] MEDS ORDERED: REMDESIVIR (INVESTIGATIONAL DRUG GS-5734) 100 MG in NS 250 ML IV 250 ML IV ONE (10:06)
[2020-04-23 14:17] VITALS: BP 145/72
--- NOTE | 2020-04-24 11:20 | PCM.PROG ---
Progress Note - Progress Note for Day of Date of Exam: 04/20/20 - Subjective Subjective: IS BEING TREATED FOR PNEUMONIA DUE TO COVID-19 AND HYPOXIA. TODAY, SHE IS ALERT AND ORIENTED, LYING IN BED ON MORNING ROUNDS. SHE CONTINUES WITH COUGH, SHORTNESS OF BREATH AND WEAKNESS. SHE REPORTS WORSENING OF SHORTNESS OF BREATH AND WEAKNESS SINCE ONE DAY PRIOR. SHE IS CURRENTLY ON NASAL CANNULA AT 2L/MIN. ON EXAMINATION, HEART IS REGULAR IN RATE AND RHYTHM. BILATERAL LUNGS ARE NOTED WITH SCATTERED WHEEZING THROUGHOUT. ABDOMEN IS ROUND, SOFT, AND NON-TENDER WITH NORMAL BOWEL SOUNDS NOTED IN ALL QUADRANTS. HER VITALS THIS MORNING ARE 97.4-51-20-96%NC-114/72. LABS WERE OBTAINED. ABNORMAL LAB VALUES INCLUDE THE FOLLOWING: GLUCOSE 160, CALCIUM 8.1, FERRITIN 11568, AST 47, CRP 126.60, TOTAL PROTEIN 5.7, ALBUMIN 2.1. AN ABG WAS OBTAINED AND REVEALED: PH 7.460, P02 62, HC03 28.4, 02 SAT 93, BASE EXCESS 4.2, FI02 28. A CHEST XRAY WAS OBTAINED AND REVEALED: Persistent and increasing bilateral infiltrates/pneumonia. SHE IS CURRENTLY RECEIVING NS AT 20 ML/HR, LEVAQUIN 500MG IV DAILY, REMDESIVIR 100 MG IV DAILY, DUONEBS TID, PULMICORT NEBS BID, MUCOMYST IN NEBS BID, TESSALON PERLES TID, ROBITUSSIN DM 10 ML QID, ZINC 200MG PO BID, SOLU-MEDROL 80MG IV Q8H, AND LOVENOX 30MG SC BID. WE WILL CONTINUE WITH CURRENT PLAN OF CARE TODAY. OTHERWISE, WE PLAN TO FOLLOW UP WITH AM LABS AND CONTINUE TO MONITOR. - Past Medical Family Social History Past Med/Fam/Surg Hx: No changes since H&P Allergies: Allergies No Known Drug Allergies Allergy (Verified 04/18/20 16:12) - Review of Systems ROS: No change since H&P - Vital Signs and I&O's Vital Signs: Temperature 98.9 F Pulse Rate [Left Radial] 75 Pulse Rate 82 Respiratory Rate 20 Blood Pressure [Left Arm] 145/72 Blood Pressure 132/62 O2 Sat by Pulse Oximetry 94 Intake and Output: Intake & Output 04/21/20 04/22/20 04/23/20 04/24/20 11:59 11:59 11:59 11:59 Intake Total 1560 / 1560 3239 / 3239 3902 / 3902 Balance 1560 / 1560 3239 / 3239 3902 / 3902 - Physical Exam Oriented: Normal Eyes: Normal Ear: Normal Nose: Normal Throat: Normal Respiratory: Generalized, Diminished, Wheezes Cardiovascular: Normal : Normal Auscultation: Bowel Sounds: Normal Palpation: Normal Tenderness: Normal Skin: Normal Musculoskeletal: Normal Psychiatric: Normal Mood Description: Calm Affect: Normal Speech Pattern: Clear, Appropriate - Laboratory and Diagnostics Result Diagrams: 04/23/20 04:35 04/23/20 04:35 Labs: Laboratory WBC 13.5 X10^3/uL (3.6-10.0) H 04/23/20 04:35 RBC 3.95 X10^6/uL (3.5-5.4) 04/23/20 04:35 Hgb 13.2 g/dL (12.0-16.0) 04/23/20 04:35 Hct 38.5 % (36.0-47.0) 04/23/20 04:35 MCV 97.6 fL (80.0-100.0) 04/23/20 04:35 MCH 33.4 pg (27.0-34.0) 04/23/20 04:35 MCHC 34.2 g/dL (33.0-35.0) 04/23/20 04:35 RDW 12.1 % (11.6-16.5) 04/23/20 04:35 Plt Count 266 X10^3/uL (150.0-450.0) 04/23/20 04:35 Plt Count Comment Adequate (ADEQUATE) 04/23/20 04:35 MPV 8.8 fL (7.4-11.0) 04/23/20 04:35 Neut % (Auto) 92.3 % (42.0-75.0) H 04/23/20 04:35 Lymph % (Auto) 3.6 % (21.0-51.0) L 04/23/20 04:35 [place] % (Auto) 3.9 % (0.0-13.0) 04/23/20 04:35 Eos % (Auto) 0.1 % (0.9-2.9) L 04/23/20 04:35 Baso % (Auto) 0.1 % (0.2-1.0) L 04/23/20 04:35 Neut # (Auto) 12.5 x10^3/uL (2.2-4.8) H 04/23/20 04:35 Lymph # (Auto) 0.5 X10^3/uL (1.3-2.9) L 04/23/20 04:35 [place] # (Auto) 0.5 x10^3/uL (0.3-0.8) 04/23/20 04:35 Eos # (Auto) 0.0 x10^3/uL (0.0-0.2) 04/23/20 04:35 Baso # (Auto) 0.0 X10^3/uL (0.0-0.1) 04/23/20 04:35 Absolute Nucleated RBC 0.1 /100WBC 04/23/20 04:35 Total Counted 100 04/23/20 04:35 Neutrophils % (Manual) 91 % (39-76) H 04/23/20 04:35 Band Neutrophils % 4 % (0-10) 04/21/20 04:25 Lymphocytes % (Manual) 6 % (13-43) L 04/23/20 04:35 Monocytes % (Manual) 3 % (4-9) L 04/23/20 04:35 Plt Morphology Comment Normal (NORMAL) 04/23/20 04:35 RBC Morphology Normal (NORMAL) 04/23/20 04:35 PT 13.6 SECONDS (11.8-14.3) 04/18/20 20:10 INR Target Range - 04/18/20 20:10 INR 1.07 (0.8-1.3) 04/18/20 20:10 APTT 37.1 SECONDS (22.9-36.5) H 04/18/20 20:10 PTT Comment - 04/18/20 20:10 Sample Site Rrad 04/23/20 05:54 ABG pH 7.510 (7.35-7.45) H 04/23/20 05:54 ABG pCO2 41.0 mmHg (35.0-45.0) 04/23/20 05:54 ABG pO2 63.0 mmHg (80.0-100.0) L 04/23/20 05:54 ABG HCO3 32.7 mmol/L (22-26) H* 04/23/20 05:54 ABG O2 Saturation 94.0 % (90-100) 04/23/20 05:54 ABG Base Excess 8.8 mmol/L (-2.0-2.0) H 04/23/20 05:54 Bandar Test Pos 04/23/20 05:54 A-a Gradient 114.0 mmHg 04/23/20 05:54 FiO2 32.0 04/23/20 05:54 Blood Gas Comments Fatemeh abg well-mtf 04/23/20 05:54 Sodium 137 mmol/L (136-145) 04/23/20 04:35 Corrected Sodium 139 mmol/L (136-145) 04/23/20 04:35 Potassium 4.2 mmol/L (3.5-5.1) 04/23/20 04:35 Chloride 103 mmol/L (98-107) 04/23/20 04:35 Carbon Dioxide 29.3 mmol/L (21-32) 04/23/20 04:35 BUN 18 mg/dL (7-18) 04/23/20 04:35 Creatinine 0.56 mg/dL (0.55-1.02) 04/23/20 04:35 Est GFR (MDRD) Af Amer > 60 (>60) 04/23/20 04:35 Est GFR (MDRD) Non-Af > 60 (>60) 04/23/20 04:35 Glucose 204 mg/dL (65-99) H 04/23/20 04:35 Calcium 7.7 mg/dL (8.5-10.1) L 04/23/20 04:35 Corrected Calcium 9.3 mg/dL (8.5-10.1) 04/23/20 04:35 Magnesium 2.0 mg/dL (1.7-2.9) 04/18/20 20:10 Ferritin 4558 ng/mL (8-252) H 04/23/20 04:35 Total Bilirubin 0.30 mg/dL (0.2-1.0) 04/23/20 04:35 AST 37 Units/L (15-37) 04/23/20 04:35 ALT 59 Units/L (12-78) 04/23/20 04:35 Alkaline Phosphatase 56 Units/L (46-116) 04/23/20 04:35 Creatine Kinase 131 Units/L (26-192) 04/18/20 20:10 CK-MB (CK-2) < 1.0 ng/mL (0-4.0) 04/18/20 20:10 CK/CKMB % Calc 0.8 % (<4) 04/18/20 20:10 Troponin I < 0.02 ng/mL (0-1.5) 04/18/20 20:10 Troponin I < 0.02 ng/mL (0-1.5) 04/18/20 20:10 C-Reactive Protein 12.80 mg/L (0-3.0) H 04/23/20 04:35 Total Protein 5.0 g/dL (6.4-8.2) L 04/23/20 04:35 Albumin 2.0 g/dL (3.4-5.0) L 04/23/20 04:35 Globulin 3.0 g/dL (2.5-4.5) 04/23/20 04:35 Albumin/Globulin Ratio 0.7 Ratio (1.1-2.1) L 04/23/20 04:35 Prealbumin 10.3 mg/dL (18-35.7) L 04/20/20 04:05 - Plan (1) Pneumonia due to 2019 novel coronavirus Status: Acute Plan: NS AT 20 ML/HR, LEVAQUIN 500MG IV DAILY, REMDESIVIR 100 MG IV DAILY, DUONEBS TID, PULMICORT NEBS BID, MUCOMYST IN NEBS BID, TESSALON PERLES TID, ROBITUSSIN DM 10 ML QID, ZINC 200MG PO BID, SOLU-MEDROL 80MG IV Q8H, AND LOVENOX 30MG SC BID. (2) Hypoxia Status: Acute (3) Hypertension Status: Chronic Qualifiers: Hypertension type: essential hypertension Qualified Code(s): I10 - Essential (primary) hypertension Plan: CONTINUE HOME MEDS (4) Hyperlipidemia Status: Chronic Qualifiers: Hyperlipidemia type: mixed hyperlipidemia Qualified Code(s): E78.2 - Mixed hyperlipidemia Plan: CONTINUE HOME MEDS
--- NOTE | 2020-04-24 11:24 | PCM.PROG ---
Progress Note - Progress Note for Day of Date of Exam: 04/21/20 - Subjective Subjective: IS BEING TREATED FOR PNEUMONIA DUE TO COVID-19 AND HYPOXIA. SHE HAS A HISTORY OF HTN AND HYPERLIPIDEMIA. TODAY, SHE IS ALERT AND ORIENTED, LYING IN BED ON MORNING ROUNDS. SHE CONTINUES WITH COUGH, SHORTNESS OF BREATH, AND WEAKNESS. SHE REPORTS SLIGHT IMPROVEMENT IN SYMPTOMS TODAY. SHE REMAINS ON NASAL CANNULA AT 2L/MIN. ON EXAMINATION, HEART IS REGULAR IN RATE AND RHYTHM. BILATERAL LUNGS ARE NOTED WITH SCATTERED WHEEZING THROUGHOUT. ABDOMEN IS ROUND, SOFT, AND NON-TENDER WITH NORMAL BOWEL SOUNDS NOTED IN ALL QUADRANTS. HER VITALS THIS MORNING ARE 98.1-72-22-97%NC-167/73. LABS WERE OBTAINED. ABNORMAL LAB VALUES INCLUDE THE FOLLOWING: WBC 15.2, HCT 35.8, GLUCOSE 175, CALCIUM 8.0, FERRITIN 9977, AST 43, CRP 49.40, TOTAL PROTEIN 5.4, ALBUMIN 2.0. AN ABG WAS OBTAINED AND REVEALED: PH PH 7.460, PC02 42, P02 61, HC03 29.9, 02 SAT 92, BASE EXCESS 5.5, FI02 28. A CHEST XRAY WAS OBTAINED AND REVEALED: NO APPRECIABLE INTERVAL CHANGE SINCE ONE DAY PRIOR. SHE IS CURRENTLY RECEIVING NS AT 20 ML/HR, LEVAQUIN 500MG IV DAILY, REMDESIVIR 100 MG IV DAILY, DUONEBS TID, PULMICORT NEBS BID, MUCOMYST IN NEBS BID, TESSALON PERLES TID, ROBITUSSIN DM 10 ML QID, ZINC 200MG PO BID, SOLU-MEDROL 80MG IV Q8H, AND LOVENOX 30MG SC BID. WE WILL CONTINUE WITH CURRENT PLAN OF CARE TODAY AND RESUME HER LISINOPRIL. OTHERWISE, WE PLAN TO FOLLOW UP WITH AM LABS AND CONTINUE TO MONITOR. - Past Medical Family Social History Past Med/Fam/Surg Hx: No changes since H&P Allergies: Allergies No Known Drug Allergies Allergy (Verified 04/18/20 16:12) - Review of Systems ROS: No change since H&P - Vital Signs and I&O's Vital Signs: Temperature 98.9 F Pulse Rate [Left Radial] 75 Pulse Rate 82 Respiratory Rate 20 Blood Pressure [Left Arm] 145/72 Blood Pressure 132/62 O2 Sat by Pulse Oximetry 94 Intake and Output: Intake & Output 04/21/20 04/22/20 04/23/20 04/24/20 11:59 11:59 11:59 11:59 Intake Total 1560 / 1560 3239 / 3239 3902 / 3902 Balance 1560 / 1560 3239 / 3239 3902 / 3902 - Physical Exam Oriented: Normal Eyes: Normal Ear: Normal Nose: Normal Throat: Normal Respiratory: Generalized, Diminished, Wheezes Cardiovascular: Normal : Normal Auscultation: Bowel Sounds: Normal Palpation: Normal Tenderness: Normal Skin: Normal Musculoskeletal: Normal Psychiatric: Normal Mood Description: Calm Affect: Normal Speech Pattern: Clear, Appropriate - Laboratory and Diagnostics Result Diagrams: 04/23/20 04:35 04/23/20 04:35 Labs: Laboratory WBC 13.5 X10^3/uL (3.6-10.0) H 04/23/20 04:35 RBC 3.95 X10^6/uL (3.5-5.4) 04/23/20 04:35 Hgb 13.2 g/dL (12.0-16.0) 04/23/20 04:35 Hct 38.5 % (36.0-47.0) 04/23/20 04:35 MCV 97.6 fL (80.0-100.0) 04/23/20 04:35 MCH 33.4 pg (27.0-34.0) 04/23/20 04:35 MCHC 34.2 g/dL (33.0-35.0) 04/23/20 04:35 RDW 12.1 % (11.6-16.5) 04/23/20 04:35 Plt Count 266 X10^3/uL (150.0-450.0) 04/23/20 04:35 Plt Count Comment Adequate (ADEQUATE) 04/23/20 04:35 MPV 8.8 fL (7.4-11.0) 04/23/20 04:35 Neut % (Auto) 92.3 % (42.0-75.0) H 04/23/20 04:35 Lymph % (Auto) 3.6 % (21.0-51.0) L 04/23/20 04:35 [place] % (Auto) 3.9 % (0.0-13.0) 04/23/20 04:35 Eos % (Auto) 0.1 % (0.9-2.9) L 04/23/20 04:35 Baso % (Auto) 0.1 % (0.2-1.0) L 04/23/20 04:35 Neut # (Auto) 12.5 x10^3/uL (2.2-4.8) H 04/23/20 04:35 Lymph # (Auto) 0.5 X10^3/uL (1.3-2.9) L 04/23/20 04:35 [place] # (Auto) 0.5 x10^3/uL (0.3-0.8) 04/23/20 04:35 Eos # (Auto) 0.0 x10^3/uL (0.0-0.2) 04/23/20 04:35 Baso # (Auto) 0.0 X10^3/uL (0.0-0.1) 04/23/20 04:35 Absolute Nucleated RBC 0.1 /100WBC 04/23/20 04:35 Total Counted 100 04/23/20 04:35 Neutrophils % (Manual) 91 % (39-76) H 04/23/20 04:35 Band Neutrophils % 4 % (0-10) 04/21/20 04:25 Lymphocytes % (Manual) 6 % (13-43) L 04/23/20 04:35 Monocytes % (Manual) 3 % (4-9) L 04/23/20 04:35 Plt Morphology Comment Normal (NORMAL) 04/23/20 04:35 RBC Morphology Normal (NORMAL) 04/23/20 04:35 PT 13.6 SECONDS (11.8-14.3) 04/18/20 20:10 INR Target Range - 04/18/20 20:10 INR 1.07 (0.8-1.3) 04/18/20 20:10 APTT 37.1 SECONDS (22.9-36.5) H 04/18/20 20:10 PTT Comment - 04/18/20 20:10 Sample Site Rrad 04/23/20 05:54 ABG pH 7.510 (7.35-7.45) H 04/23/20 05:54 ABG pCO2 41.0 mmHg (35.0-45.0) 04/23/20 05:54 ABG pO2 63.0 mmHg (80.0-100.0) L 04/23/20 05:54 ABG HCO3 32.7 mmol/L (22-26) H* 04/23/20 05:54 ABG O2 Saturation 94.0 % (90-100) 04/23/20 05:54 ABG Base Excess 8.8 mmol/L (-2.0-2.0) H 04/23/20 05:54 Bandar Test Pos 04/23/20 05:54 A-a Gradient 114.0 mmHg 04/23/20 05:54 FiO2 32.0 04/23/20 05:54 Blood Gas Comments Fatemeh abg well-mtf 04/23/20 05:54 Sodium 137 mmol/L (136-145) 04/23/20 04:35 Corrected Sodium 139 mmol/L (136-145) 04/23/20 04:35 Potassium 4.2 mmol/L (3.5-5.1) 04/23/20 04:35 Chloride 103 mmol/L (98-107) 04/23/20 04:35 Carbon Dioxide 29.3 mmol/L (21-32) 04/23/20 04:35 BUN 18 mg/dL (7-18) 04/23/20 04:35 Creatinine 0.56 mg/dL (0.55-1.02) 04/23/20 04:35 Est GFR (MDRD) Af Amer > 60 (>60) 04/23/20 04:35 Est GFR (MDRD) Non-Af > 60 (>60) 04/23/20 04:35 Glucose 204 mg/dL (65-99) H 04/23/20 04:35 Calcium 7.7 mg/dL (8.5-10.1) L 04/23/20 04:35 Corrected Calcium 9.3 mg/dL (8.5-10.1) 04/23/20 04:35 Magnesium 2.0 mg/dL (1.7-2.9) 04/18/20 20:10 Ferritin 4558 ng/mL (8-252) H 04/23/20 04:35 Total Bilirubin 0.30 mg/dL (0.2-1.0) 04/23/20 04:35 AST 37 Units/L (15-37) 04/23/20 04:35 ALT 59 Units/L (12-78) 04/23/20 04:35 Alkaline Phosphatase 56 Units/L (46-116) 04/23/20 04:35 Creatine Kinase 131 Units/L (26-192) 04/18/20 20:10 CK-MB (CK-2) < 1.0 ng/mL (0-4.0) 04/18/20 20:10 CK/CKMB % Calc 0.8 % (<4) 04/18/20 20:10 Troponin I < 0.02 ng/mL (0-1.5) 04/18/20 20:10 Troponin I < 0.02 ng/mL (0-1.5) 04/18/20 20:10 C-Reactive Protein 12.80 mg/L (0-3.0) H 04/23/20 04:35 Total Protein 5.0 g/dL (6.4-8.2) L 04/23/20 04:35 Albumin 2.0 g/dL (3.4-5.0) L 04/23/20 04:35 Globulin 3.0 g/dL (2.5-4.5) 04/23/20 04:35 Albumin/Globulin Ratio 0.7 Ratio (1.1-2.1) L 04/23/20 04:35 Prealbumin 10.3 mg/dL (18-35.7) L 04/20/20 04:05 - Plan (1) Pneumonia due to 2019 novel coronavirus Status: Acute Plan: NS AT 20 ML/HR, LEVAQUIN 500MG IV DAILY, REMDESIVIR 100 MG IV DAILY, DUONEBS TID, PULMICORT NEBS BID, MUCOMYST IN NEBS BID, TESSALON PERLES TID, ROBITUSSIN DM 10 ML QID, ZINC 200MG PO BID, SOLU-MEDROL 80MG IV Q8H, AND LOVENOX 30MG SC BID. (2) Hypoxia Status: Acute (3) Hypertension Status: Chronic Qualifiers: Hypertension type: essential hypertension Qualified Code(s): I10 - Essential (primary) hypertension Plan: CONTINUE HOME MEDS (4) Hyperlipidemia Status: Chronic Qualifiers: Hyperlipidemia type: mixed hyperlipidemia Qualified Code(s): E78.2 - Mixed hyperlipidemia Plan: CONTINUE HOME MEDS
--- NOTE | 2020-04-24 11:34 | PCM.PROG ---
Progress Note - Progress Note for Day of Date of Exam: 04/22/20 - Subjective Subjective: IS BEING TREATED FOR PNEUMONIA DUE TO COVID-19 AND HYPOXIA. SHE HAS A HISTORY OF HTN AND HYPERLIPIDEMIA. TODAY, SHE IS ALERT AND ORIENTED, LYING IN BED ON MORNING ROUNDS. SHE CONTINUES WITH COUGH, SHORTNESS OF BREATH, AND WEAKNESS. SHE CONTINUES TO REPORT SLIGHT IMPROVEMENT IN SYMPTOMS. SHE REMAINS ON NASAL CANNULA AT 2L/MIN. ON EXAMINATION, HEART IS REGULAR IN RATE AND RHYTHM. BILATERAL LUNGS ARE NOTED WITH SCATTERED WHEEZING THROUGHOUT. ABDOMEN IS ROUND, SOFT, AND NON-TENDER WITH NORMAL BOWEL SOUNDS NOTED IN ALL QUADRANTS. HER VITALS THIS MORNING ARE 98.7-83-18-92%NC-149/69. LABS WERE OBTAINED. ABNORMAL LAB VALUES INCLUDE THE FOLLOWING: WBC 16.2, HCT 35.8, BUN 19, GLUCOSE 194, CALCIUM 7.7, FERRITIN 5801, AST 41, CRP 21.20, TOTAL PROTEIN 4.9, ALBUMIN 1.8. AN ABG WAS OBTAINED AND REVEALED: PH 7.470, PC02 43, P02 55, HC03 31.3, 02 ST 90, BASE EXCESS 6.8, FI02 28. A CHEST XRAY WAS OBTAINED AND REVEALED: The trachea is midline. The cardiac silhouette is within normal l imits. Patchy bilateral interstitial and airspace opacities, right greater than left, are grossly unchanged. There is no significant pleural effusion or evidence of pneumothorax. The bony thorax is grossly unremarkable. SHE IS CURRENTLY RECEIVING NS AT 20 ML/HR, LEVAQUIN 500MG IV DAILY, REMDESIVIR 100 MG IV DAILY, DUONEBS TID, PULMICORT NEBS BID, MUCOMYST IN NEBS BID, TESSALON PERLES TID, ROBITUSSIN DM 10 ML QID, ZINC 200MG PO BID, SOLU-MEDROL 80MG IV Q8H, AND LOVENOX 30MG SC BID. WE WILL CONTINUE WITH CURRENT PLAN OF CARE TODAY AND INCREASE DUONEBS TO QID. OTHERWISE, WE PLAN TO FOLLOW UP WITH AM LABS AND CONTINUE TO MONITOR. - Past Medical Family Social History Past Med/Fam/Surg Hx: No changes since H&P Allergies: Allergies No Known Drug Allergies Allergy (Verified 04/18/20 16:12) - Review of Systems ROS: No change since H&P - Vital Signs and I&O's Vital Signs: Temperature 98.9 F Pulse Rate [Left Radial] 75 Pulse Rate 82 Respiratory Rate 20 Blood Pressure [Left Arm] 145/72 Blood Pressure 132/62 O2 Sat by Pulse Oximetry 94 Intake and Output: Intake & Output 04/21/20 04/22/20 04/23/20 04/24/20 11:59 11:59 11:59 11:59 Intake Total 1560 / 1560 3239 / 3239 3902 / 3902 Balance 1560 / 1560 3239 / 3239 3902 / 3902 - Physical Exam Oriented: Normal Eyes: Normal Ear: Normal Nose: Normal Throat: Normal Respiratory: Generalized, Diminished, Wheezes Cardiovascular: Normal : Normal Auscultation: Bowel Sounds: Normal Palpation: Normal Tenderness: Normal Skin: Normal Musculoskeletal: Normal Psychiatric: Normal Mood Description: Calm Affect: Normal Speech Pattern: Clear, Appropriate - Laboratory and Diagnostics Result Diagrams: 04/23/20 04:35 04/23/20 04:35 Labs: Laboratory WBC 13.5 X10^3/uL (3.6-10.0) H 04/23/20 04:35 RBC 3.95 X10^6/uL (3.5-5.4) 04/23/20 04:35 Hgb 13.2 g/dL (12.0-16.0) 04/23/20 04:35 Hct 38.5 % (36.0-47.0) 04/23/20 04:35 MCV 97.6 fL (80.0-100.0) 04/23/20 04:35 MCH 33.4 pg (27.0-34.0) 04/23/20 04:35 MCHC 34.2 g/dL (33.0-35.0) 04/23/20 04:35 RDW 12.1 % (11.6-16.5) 04/23/20 04:35 Plt Count 266 X10^3/uL (150.0-450.0) 04/23/20 04:35 Plt Count Comment Adequate (ADEQUATE) 04/23/20 04:35 MPV 8.8 fL (7.4-11.0) 04/23/20 04:35 Neut % (Auto) 92.3 % (42.0-75.0) H 04/23/20 04:35 Lymph % (Auto) 3.6 % (21.0-51.0) L 04/23/20 04:35 [place] % (Auto) 3.9 % (0.0-13.0) 04/23/20 04:35 Eos % (Auto) 0.1 % (0.9-2.9) L 04/23/20 04:35 Baso % (Auto) 0.1 % (0.2-1.0) L 04/23/20 04:35 Neut # (Auto) 12.5 x10^3/uL (2.2-4.8) H 04/23/20 04:35 Lymph # (Auto) 0.5 X10^3/uL (1.3-2.9) L 04/23/20 04:35 [place] # (Auto) 0.5 x10^3/uL (0.3-0.8) 04/23/20 04:35 Eos # (Auto) 0.0 x10^3/uL (0.0-0.2) 04/23/20 04:35 Baso # (Auto) 0.0 X10^3/uL (0.0-0.1) 04/23/20 04:35 Absolute Nucleated RBC 0.1 /100WBC 04/23/20 04:35 Total Counted 100 04/23/20 04:35 Neutrophils % (Manual) 91 % (39-76) H 04/23/20 04:35 Band Neutrophils % 4 % (0-10) 04/21/20 04:25 Lymphocytes % (Manual) 6 % (13-43) L 04/23/20 04:35 Monocytes % (Manual) 3 % (4-9) L 04/23/20 04:35 Plt Morphology Comment Normal (NORMAL) 04/23/20 04:35 RBC Morphology Normal (NORMAL) 04/23/20 04:35 PT 13.6 SECONDS (11.8-14.3) 04/18/20 20:10 INR Target Range - 04/18/20 20:10 INR 1.07 (0.8-1.3) 04/18/20 20:10 APTT 37.1 SECONDS (22.9-36.5) H 04/18/20 20:10 PTT Comment - 04/18/20 20:10 Sample Site Rrad 04/23/20 05:54 ABG pH 7.510 (7.35-7.45) H 04/23/20 05:54 ABG pCO2 41.0 mmHg (35.0-45.0) 04/23/20 05:54 ABG pO2 63.0 mmHg (80.0-100.0) L 04/23/20 05:54 ABG HCO3 32.7 mmol/L (22-26) H* 04/23/20 05:54 ABG O2 Saturation 94.0 % (90-100) 04/23/20 05:54 ABG Base Excess 8.8 mmol/L (-2.0-2.0) H 04/23/20 05:54 Bandar Test Pos 04/23/20 05:54 A-a Gradient 114.0 mmHg 04/23/20 05:54 FiO2 32.0 04/23/20 05:54 Blood Gas Comments Fatemeh abg well-mtf 04/23/20 05:54 Sodium 137 mmol/L (136-145) 04/23/20 04:35 Corrected Sodium 139 mmol/L (136-145) 04/23/20 04:35 Potassium 4.2 mmol/L (3.5-5.1) 04/23/20 04:35 Chloride 103 mmol/L (98-107) 04/23/20 04:35 Carbon Dioxide 29.3 mmol/L (21-32) 04/23/20 04:35 BUN 18 mg/dL (7-18) 04/23/20 04:35 Creatinine 0.56 mg/dL (0.55-1.02) 04/23/20 04:35 Est GFR (MDRD) Af Amer > 60 (>60) 04/23/20 04:35 Est GFR (MDRD) Non-Af > 60 (>60) 04/23/20 04:35 Glucose 204 mg/dL (65-99) H 04/23/20 04:35 Calcium 7.7 mg/dL (8.5-10.1) L 04/23/20 04:35 Corrected Calcium 9.3 mg/dL (8.5-10.1) 04/23/20 04:35 Magnesium 2.0 mg/dL (1.7-2.9) 04/18/20 20:10 Ferritin 4558 ng/mL (8-252) H 04/23/20 04:35 Total Bilirubin 0.30 mg/dL (0.2-1.0) 04/23/20 04:35 AST 37 Units/L (15-37) 04/23/20 04:35 ALT 59 Units/L (12-78) 04/23/20 04:35 Alkaline Phosphatase 56 Units/L (46-116) 04/23/20 04:35 Creatine Kinase 131 Units/L (26-192) 04/18/20 20:10 CK-MB (CK-2) < 1.0 ng/mL (0-4.0) 04/18/20 20:10 CK/CKMB % Calc 0.8 % (<4) 04/18/20 20:10 Troponin I < 0.02 ng/mL (0-1.5) 04/18/20 20:10 Troponin I < 0.02 ng/mL (0-1.5) 04/18/20 20:10 C-Reactive Protein 12.80 mg/L (0-3.0) H 04/23/20 04:35 Total Protein 5.0 g/dL (6.4-8.2) L 04/23/20 04:35 Albumin 2.0 g/dL (3.4-5.0) L 04/23/20 04:35 Globulin 3.0 g/dL (2.5-4.5) 04/23/20 04:35 Albumin/Globulin Ratio 0.7 Ratio (1.1-2.1) L 04/23/20 04:35 Prealbumin 10.3 mg/dL (18-35.7) L 04/20/20 04:05 - Plan (1) Pneumonia due to 2019 novel coronavirus Status: Acute Plan: NS AT 20 ML/HR, LEVAQUIN 500MG IV DAILY, REMDESIVIR 100 MG IV DAILY, DUONEBS QID, PULMICORT NEBS BID, MUCOMYST IN NEBS BID, TESSALON PERLES TID, ROBITUSSIN DM 10 ML QID, ZINC 200MG PO BID, SOLU-MEDROL 80MG IV Q8H, AND LOVENOX 30MG SC BID. (2) Hypoxia Status: Acute (3) Hypertension Status: Chronic Qualifiers: Hypertension type: essential hypertension Qualified Code(s): I10 - Essential (primary) hypertension Plan: CONTINUE HOME MEDS (4) Hyperlipidemia Status: Chronic Qualifiers: Hyperlipidemia type: mixed hyperlipidemia Qualified Code(s): E78.2 - Mixed hyperlipidemia Plan: CONTINUE HOME MEDS
== END 2020-04-23 13:25 | disposition home health service (06) | DRG 177 ==
LOC: ER 16:11 → MED/SURG 23:41
PROVIDERS: ADMIT Obstetrics & Gynecology Obstetrics; ATTEND Internal Medicine
DX: J12.89 Other viral pneumonia; E78.2 Mixed hyperlipidemia; R26.81 Unsteadiness on feet; U07.1 COVID-19; R79.1 Abnormal coagulation profile; R09.02 Hypoxemia; E78.5 Hyperlipidemia, unspecified; I10 Essential (primary) hypertension

== ENCOUNTER 2022-10-22 15:59 | Observation (INO) ==
[2022-10-22] MEDS ORDERED: ZESTRIL TAB 10 MG PO ONE (17:50)
[2022-10-22 17:57] LABS: BASOPHILS % (AUTO) 0.6 % (0.2-1.0); EOSINOPHILS # (AUTO) 0.1 x10^3/uL (0.0-0.2); EOSINOPHILS % (AUTO) 1.1 % (0.9-2.9); HEMATOCRIT 36.2 % (36.0-47.0); HEMOGLOBIN 12.4 g/dL (12.0-16.0); LYMPHOCYTES # (AUTO) 1.9 X10^3/uL (1.3-2.9); LYMPHOCYTES % (AUTO) 27.1 % (21.0-51.0); MEAN CORPUSCULAR HEMOGLOBIN 33.1 pg (27.0-34.0); MEAN CORPUSCULAR HGB CONC 34.3 g/dL (33.0-35.0); MEAN CORPUSCULAR VOLUME 96.5 fL (80.0-100.0); MEAN PLATELET VOLUME 7.6 fL (7.4-11.0); MONOCYTES # (AUTO) 0.8 x10^3/uL (0.3-0.8); MONOCYTES % (AUTO) 10.7 % (0.0-13.0); NEUTROPHILS # (AUTO) 4.3 x10^3/uL (2.2-4.8); NEUTROPHILS % (AUTO) 60.5 % (42.0-75.0); RED BLOOD COUNT 3.75 X10^6/uL (3.5-5.4); RED CELL DISTRIBUTION WIDTH 13.3 % (11.6-16.5); WHITE BLOOD COUNT 7.1 X10^3/uL (3.6-10.0)
[2022-10-22] MEDS: NS 1,000 ML IV 1,000 ML IV SCH (18:09)
[2022-10-22 18:16] LABS: ALANINE AMINOTRANSFERASE 19 Units/L (12-78); ALBUMIN 3.2 g/dL (3.4-5.0); ALKALINE PHOSPHATASE 83 Units/L (46-116); ASPARTATE AMINO TRANSFERASE 22 Units/L (15-37); BLOOD UREA NITROGEN 16 mg/dL (7-18); CALCIUM 8.5 mg/dL (8.5-10.1); CARBON DIOXIDE 31.9 mmol/L (21-32); CHLORIDE 105 mmol/L (98-107); COR CA(FOR HYPOALB) 9.1 mg/dL (8.5-10.1); COR NA(FOR HYPERGLY) 142 mmol/L (136-145); CREATININE 0.65 mg/dL (0.55-1.02); SODIUM 141 mmol/L (136-145); TOTAL PROTEIN 6.3 g/dL (6.4-8.2); eGFR NON BLACK RACES > 60 (>60)
[2022-10-22 20:01] LABS: BILIRUBIN,URINE NEGATIVE (NEGATIVE); BLOOD/HEMOGLOBIN,URINE NEGATIVE (NEGATIVE); GLUCOSE, URINE NEGATIVE (NEGATIVE); KETONES,URINE NEGATIVE (NEGATIVE); LEUKOCYTE ESTERASE ,URINE 3+ (NEGATIVE); NITRITES,URINE NEGATIVE (NEGATIVE); PROTEIN,URINE 1+ (NEGATIVE); UROBILINOGEN,URINE NORMAL (NORMAL)
[2022-10-22 20:04] LABS: APPEARANCE,URINE CLEAR (CLEAR); COLOR,URINE YELLOW (YELLOW)
[2022-10-22 20:23] LABS: BACTERIA,URINE 1+ /HPF (NEGATIVE); CALCIUM OXALATE CRYSTALS,UR MODERATE /HPF (NEGATIVE); RBC,URINE 0-2 /HPF (0-3); SQUAMOUS EPITHELIAL CELL,UR MODERATE /HPF (NEGATIVE)
[2022-10-22] MEDS: Atrovent NEB TX 0.02% NEB SCH (20:28)
[2022-10-22] MEDS: XOPENEX 1.25 MG/3 ML NEBULE NEB SCH (20:28)
[2022-10-22] MEDS: PULMICORT NEB TX 0.5 MG NEB SCH (20:28)
[2022-10-22] MEDS: ZOCOR TAB 40 MG PO SCH (20:43)
[2022-10-22] MEDS ORDERED: ACCUNEB 1.25 MG NEBULE IN SCH (21:00)
[2022-10-22] MEDS ORDERED: PROVENTIL NEB TX 0.083% 2.5MG/ 3ML NEB SCH (21:00)
[2022-10-22] MEDS ORDERED: DUONEB 0.5 MG/3 MG (3 mL) NEB SCH ×3 (21:00→22:00)
[2022-10-23] MEDS: Atrovent NEB TX 0.02% NEB SCH ×3 (05:46→20:20)
[2022-10-23] MEDS: XOPENEX 1.25 MG/3 ML NEBULE NEB SCH ×3 (05:46→20:20)
[2022-10-23 06:31] LABS: BASOPHILS % (AUTO) 0.4 % (0.2-1.0); EOSINOPHILS # (AUTO) 0.1 x10^3/uL (0.0-0.2); EOSINOPHILS % (AUTO) 1.3 % (0.9-2.9); HEMATOCRIT 33.9 % (36.0-47.0); HEMOGLOBIN 11.7 g/dL (12.0-16.0); LYMPHOCYTES % (AUTO) 26.7 % (21.0-51.0); MEAN CORPUSCULAR HEMOGLOBIN 32.8 pg (27.0-34.0); MEAN CORPUSCULAR HGB CONC 34.4 g/dL (33.0-35.0); MEAN CORPUSCULAR VOLUME 95.5 fL (80.0-100.0); MEAN PLATELET VOLUME 7.8 fL (7.4-11.0); MONOCYTES # (AUTO) 0.8 x10^3/uL (0.3-0.8); NEUTROPHILS # (AUTO) 4.5 x10^3/uL (2.2-4.8); NEUTROPHILS % (AUTO) 60.6 % (42.0-75.0); RED BLOOD COUNT 3.55 X10^6/uL (3.5-5.4); RED CELL DISTRIBUTION WIDTH 13.1 % (11.6-16.5); WHITE BLOOD COUNT 7.5 X10^3/uL (3.6-10.0)
[2022-10-23 06:53] LABS: ALANINE AMINOTRANSFERASE 18 Units/L (12-78); ALBUMIN 2.8 g/dL (3.4-5.0); ALKALINE PHOSPHATASE 70 Units/L (46-116); ASPARTATE AMINO TRANSFERASE 18 Units/L (15-37); BLOOD UREA NITROGEN 11 mg/dL (7-18); CALCIUM 8.1 mg/dL (8.5-10.1); CARBON DIOXIDE 31.4 mmol/L (21-32); CHLORIDE 105 mmol/L (98-107); COR CA(FOR HYPOALB) 9.1 mg/dL (8.5-10.1); CREATININE 0.55 mg/dL (0.55-1.02); SODIUM 139 mmol/L (136-145); TOTAL PROTEIN 5.4 g/dL (6.4-8.2); eGFR NON BLACK RACES > 60 (>60)
--- NOTE | 2022-10-23 07:48 | RAD ---
HISTORYSOBSTUDYCHEST, 1 [id number]/23/2022.TECHNIQUEPA or AP view of the chestFINDINGSCardiac and mediastinal contours are within normal limits. There are airspace opacities in the right mid to lower lung and left base. No definite pleural effusion or pneumothorax.IMPRESSIONBilateral airspace opacities may represent pneumonia in the acute setting. Recommend follow up imaging to document resolution after appropriate treatment.Electronically signed by: Jalil Pride (Oct 23, 2022 07:47:18)
[2022-10-23] MEDS: FERROUS GLUCONATE PO SCH (08:14)
[2022-10-23] MEDS: ZESTRIL TAB 10 MG PO SCH (08:14)
[2022-10-23] MEDS: NS 1,000 ML IV 1,000 ML IV SCH ×2 (08:20→20:36)
[2022-10-23] MEDS: PULMICORT NEB TX 0.5 MG NEB SCH ×2 (08:40→20:20)
[2022-10-23] MEDS ORDERED: FORTAZ or TAZICEF VIAL INJ 1 G in NS 100 ML IV + SPIKE MINIBAG* 100 ML IV SCH (09:00)
[2022-10-23] MEDS: FORTAZ or TAZICEF VIAL INJ 1 G in NS 100 ML IV 100 ML IV SCH ×3 (09:17→21:01)
[2022-10-23] MEDS: LEVAQUIN PREMIX IV 500 MG 500 MG/100 ML BAG IV SCH (09:17)
--- NOTE | 2022-10-23 11:29 | CT ---
HISTORYAMSSTUDYBRAIN W/O CONCOMPARISONNoneTECHNIQUEMult iple axial images of the head without contrast. Dose reduction techniques including Automated Exposure Control (AEC) and adjustment of mA and kV were utilized.Contrast: NoneFINDINGSBRAIN PARENCHYMA: No acute hemorrhage, infarct, mass, or mass effect.Forrest-white differentiation is maintained.Scattered white matter chronic small vessel ischemic changes.VENTRICLES/EXTRA-AXIAL SPACES: Unremarkable size and configuration. No hydrocephalus or extra-axial fluid collections.EXTRACRANIAL STRUCTURES:Unremarkable bones and soft tissues. Visualized paranasal sinuses and mastoids are clear.IMPRESSIONNo acute intracranial findings with moderate cerebral atrophy and probable chronic small vessel ischemic change. No prior studies for comparison. MRI is more sensitive for acute infarct.Electronically signed by: Qasim Sibley (Oct 23, 2022 11:28:26)
[2022-10-23] MEDS: ZOCOR TAB 40 MG PO SCH (20:34)
[2022-10-23] MEDS ORDERED: ROBITUSSIN DM PO PRN (21:05)
[2022-10-24] MEDS: FORTAZ or TAZICEF VIAL INJ 1 G in NS 100 ML IV 100 ML IV SCH ×3 (05:13→21:24)
[2022-10-24] MEDS: Atrovent NEB TX 0.02% NEB SCH ×3 (06:11→20:10)
[2022-10-24] MEDS: XOPENEX 1.25 MG/3 ML NEBULE NEB SCH ×3 (06:11→20:10)
[2022-10-24 06:15] LABS: BASOPHILS % (AUTO) 0.4 % (0.2-1.0); EOSINOPHILS # (AUTO) 0.2 x10^3/uL (0.0-0.2); EOSINOPHILS % (AUTO) 2.7 % (0.9-2.9); HEMATOCRIT 33.5 % (36.0-47.0); HEMOGLOBIN 11.6 g/dL (12.0-16.0); LYMPHOCYTES # (AUTO) 1.7 X10^3/uL (1.3-2.9); LYMPHOCYTES % (AUTO) 26.8 % (21.0-51.0); MEAN CORPUSCULAR HEMOGLOBIN 33.2 pg (27.0-34.0); MEAN CORPUSCULAR HGB CONC 34.5 g/dL (33.0-35.0); MONOCYTES # (AUTO) 0.9 x10^3/uL (0.3-0.8); MONOCYTES % (AUTO) 13.7 % (0.0-13.0); NEUTROPHILS # (AUTO) 3.5 x10^3/uL (2.2-4.8); NEUTROPHILS % (AUTO) 56.4 % (42.0-75.0); RED BLOOD COUNT 3.48 X10^6/uL (3.5-5.4); RED CELL DISTRIBUTION WIDTH 13.5 % (11.6-16.5); WHITE BLOOD COUNT 6.2 X10^3/uL (3.6-10.0)
[2022-10-24 06:31] LABS: ALANINE AMINOTRANSFERASE 18 Units/L (12-78); ALBUMIN 2.7 g/dL (3.4-5.0); ALKALINE PHOSPHATASE 77 Units/L (46-116); ASPARTATE AMINO TRANSFERASE 20 Units/L (15-37); BLOOD UREA NITROGEN 8 mg/dL (7-18); CALCIUM 8.3 mg/dL (8.5-10.1); CARBON DIOXIDE 31.8 mmol/L (21-32); CHLORIDE 107 mmol/L (98-107); COR CA(FOR HYPOALB) 9.3 mg/dL (8.5-10.1); CREATININE 0.56 mg/dL (0.55-1.02); SODIUM 141 mmol/L (136-145); TOTAL PROTEIN 5.6 g/dL (6.4-8.2); eGFR NON BLACK RACES > 60 (>60)
[2022-10-24] MEDS: PULMICORT NEB TX 0.5 MG NEB SCH ×2 (08:38→20:10)
[2022-10-24] MEDS: FERROUS GLUCONATE PO SCH (09:10)
[2022-10-24] MEDS: LEVAQUIN PREMIX IV 500 MG 500 MG/100 ML BAG IV SCH (09:10)
[2022-10-24] MEDS: ZESTRIL TAB 10 MG PO SCH (09:10)
--- NOTE | 2022-10-24 12:13 | PCM.PROG ---
Progress Note Progress Note for Day of Date of Exam: 10/24/22 Subjective Subjective: Patient seen at bedside, no acute events overnight. She has been doing well. She reports feeling better. She states her cough is loosening up and feels like she can cough it up. She is being treated for AMS due to UTI and pneumonia. CT-head done yesterday did not show any acute process. Patient appears to be alert and oriented today, answering questions appropriately. Labs/imaging reviewed Hgb 11.6 CXR: b/l opacities concerning for pneumonia Plan: Continue IV antibiotics, follow urine Cx. Continue nebs prn. Continue gentle hydration. Advised to ambulate as tolerated. Monitor AM labs/imaging. Past Medical Family Social History Allergies: Allergies Penicillins Allergy (Unknown, Verified 05/08/22 11:10) Vital Signs and I&O's Vital Signs: Temperature 98.2 F Pulse Rate [Left Brachial] 71 Pulse Rate 75 Respiratory Rate 16 Blood Pressure [Left Arm] 165/71 Blood Pressure 150/67 O2 Sat by Pulse Oximetry 97 Intake and Output: Intake & Output 10/21/22 10/22/22 10/23/22 10/24/22 23:59 23:59 23:59 23:59 Intake Total 300 / 300 1455 / 1455 720 / 720 Output Total 2 / 2 Balance 300 / 300 1453 / 1453 720 / 720 Physical Exam Oriented: Normal Eyes: Normal Ear: Normal Nose: Normal Throat: Normal Respiratory: Generalized and Diminished Cardiovascular: Normal Auscultation: Bowel Sounds: Normal Tenderness: Normal Skin: Normal Musculoskeletal: Normal Psychiatric: Normal Mood Description: Calm Affect: Normal Speech Pattern: Clear and Appropriate Laboratory and Diagnostics Result Diagrams: 10/24/22 05:22 10/24/22 05:22 Labs: 10/22/22 19:43 Urine,Clean Catch Urine Culture - Final Laboratory WBC 6.2 X10^3/uL (3.6-10.0) 10/24/22 05: RBC 3.48 X10^6/uL (3.5-5.4) L 10/24/22 05:22 Hgb 11.6 g/dL (12.0-16.0) L 10/24/22 05:22 Hct 33.5 % (36.0-47.0) L 10/24/22 05:22 MCV 96.0 fL (80.0-100.0) 10/24/22 05:22 MCH 33.2 pg (27.0-34.0) 10/24/22 05:22 MCHC 34.5 g/dL (33.0-35.0) 10/24/22 05:22 RDW 13.5 % (11.6-16.5) 10/24/22 05:22 Plt Count 221 X10^3/uL (150.0-450.0) 10/24/22 05:22 MPV 8.0 fL (7.4-11.0) 10/24/22 05:22 Neut % (Auto) 56.4 % (42.0-75.0) 10/24/22 05:22 Lymph % (Auto) 26.8 % (21.0-51.0) 10/24/22 05:22 [place] % (Auto) 13.7 % (0.0-13.0) H 10/24/22 05:22 Eos % (Auto) 2.7 % (0.9-2.9) 10/24/22 05:22 Baso % (Auto) 0.4 % (0.2-1.0) 10/24/22 05:22 Neut # (Auto) 3.5 x10^3/uL (2.2-4.8) 10/24/22 05:22 Lymph # (Auto) 1.7 X10^3/uL (1.3-2.9) 10/24/22 05:22 [place] # (Auto) 0.9 x10^3/uL (0.3-0.8) H 10/24/22 05:22 Eos # (Auto) 0.2 x10^3/uL (0.0-0.2) 10/24/22 05:22 Baso # (Auto) 0.0 X10^3/uL (0.0-0.1) 10/24/22 05:22 Absolute Nucleated RBC 0.0 /100WBC 10/24/22 05:22 Sodium 141 mmol/L (136-145) 10/24/22 05:22 Corrected Sodium TNP 10/24/22 05:22 Potassium 4.0 mmol/L (3.5-5.1) 10/24/22 05:22 Chloride 107 mmol/L (98-107) 10/24/22 05:22 Carbon Dioxide 31.8 mmol/L (21-32) 10/24/22 05:22 BUN 8 mg/dL (7-18) 10/24/22 05:22 Creatinine 0.56 mg/dL (0.55-1.02) 10/24/22 05:22 Est GFR (MDRD) Af Amer > 60 (>60) 10/24/22 05:22 Est GFR (MDRD) Non-Af > 60 (>60) 10/24/22 05:22 Glucose 88 mg/dL (65-99) 10/24/22 05:22 Calcium 8.3 mg/dL (8.5-10.1) L 10/24/22 05:22 Corrected Calcium 9.3 mg/dL (8.5-10.1) 10/24/22 05:22 Total Bilirubin 0.50 mg/dL (0.2-1.0) 10/24/22 05:22 AST 20 Units/L (15-37) 10/24/22 05:22 ALT 18 Units/L (12-78) 10/24/22 05:22 Alkaline Phosphatase 77 Units/L (46-116) 10/24/22 05:22 Total Protein 5.6 g/dL (6.4-8.2) L 10/24/22 05:22 Albumin 2.7 g/dL (3.4-5.0) L 10/24/22 05:22 Globulin 2.9 g/dL (2.5-4.5) 10/24/22 05:22 Albumin/Globulin Ratio 0.9 Ratio (1.1-2.1) L 10/24/22 05:22 Specimen Type Clean catch urine 10/22/22 19:43 Urine Color Yellow (YELLOW) 10/22/22 19:43 Urine Appearance Clear (CLEAR) 10/22/22 19:43 Urine pH 5.0 (5.0 - 8.0) 10/22/22 19:43 Ur Specific [place] 1.025 (1.000-1.030) 10/22/22 19:43 Urine Protein 1+ (NEGATIVE) 10/22/22 19:43 Urine Glucose (UA) Negative (NEGATIVE) 10/22/22 19:43 Urine Ketones Negative (NEGATIVE) 10/22/22 19:43 Urine Blood Negative (NEGATIVE) 10/22/22 19:43 Urine Nitrite Negative (NEGATIVE) 10/22/22 19:43 Urine Bilirubin Negative (NEGATIVE) 10/22/22 19:43 Urine Urobilinogen Normal (NORMAL) 10/22/22 19:43 Ur Leukocyte Esterase 3+ (NEGATIVE) 10/22/22 19:43 Urine RBC 0-2 /HPF (0-3) 10/22/22 19:43 Urine WBC 3-5 /HPF (0-5) 10/22/22 19:43 Ur Squamous Epith Cells Moderate /HPF (NEGATIVE) 10/22/22 19:43 Calcium Oxalate Crystal Moderate /HPF (NEGATIVE) 10/22/22 19:43 Urine Bacteria 1+ /HPF (NEGATIVE) 10/22/22 19:43 Urine Mucus Few /HPF (NEGATIVE) 10/22/22 19:43 Ur Culture Indicated? Yes/culture set up 10/22/22 19:43 Plan (1) Pneumonia: Status: Acute Qualifiers: Laterality: bilateral Lung location: unspecified part of lung Pneumonia type: due to unspecified organism Qualified Code(s): J18.9 - Pneumonia, unspecified organism (2) Altered mental status: Status: Acute Qualifiers: Altered mental status type: transient alteration of awareness Qualified Code(s): R40.4 - Transient alteration of awareness Plan: OBTAIN BRAIN CT (3) UTI (urinary tract infection): Status: Acute (4) Generalized weakness: Status: Acute (5) Hypertension: Status: Chronic Qualifiers: Hypertension type: primary hypertension Qualified Code(s): I10 - Essential (primary) hypertension (6) Hyperlipidemia: Status: Chronic Qualifiers: Hyperlipidemia type: mixed hyperlipidemia Qualified Code(s): E78.2 - Mixed hyperlipidemia
[2022-10-24] MEDS: NS 1,000 ML IV 1,000 ML IV SCH ×2 (19:12→20:33)
[2022-10-24] MEDS: ZOCOR TAB 40 MG PO SCH (20:31)
[2022-10-25] MEDS: NS 1,000 ML IV 1,000 ML IV SCH ×2 (00:57→21:17)
[2022-10-25] MEDS: FORTAZ or TAZICEF VIAL INJ 1 G in NS 100 ML IV 100 ML IV SCH ×3 (05:00→21:18)
[2022-10-25 05:02] LABS: BASOPHILS % (AUTO) 0.5 % (0.2-1.0); EOSINOPHILS # (AUTO) 0.2 x10^3/uL (0.0-0.2); EOSINOPHILS % (AUTO) 2.3 % (0.9-2.9); HEMATOCRIT 32.9 % (36.0-47.0); HEMOGLOBIN 11.5 g/dL (12.0-16.0); LYMPHOCYTES # (AUTO) 1.9 X10^3/uL (1.3-2.9); LYMPHOCYTES % (AUTO) 27.2 % (21.0-51.0); MEAN CORPUSCULAR HGB CONC 34.8 g/dL (33.0-35.0); MEAN CORPUSCULAR VOLUME 94.7 fL (80.0-100.0); MEAN PLATELET VOLUME 8.1 fL (7.4-11.0); MONOCYTES # (AUTO) 0.8 x10^3/uL (0.3-0.8); MONOCYTES % (AUTO) 12.2 % (0.0-13.0); NEUTROPHILS # (AUTO) 3.9 x10^3/uL (2.2-4.8); NEUTROPHILS % (AUTO) 57.8 % (42.0-75.0); RED BLOOD COUNT 3.48 X10^6/uL (3.5-5.4); RED CELL DISTRIBUTION WIDTH 13.7 % (11.6-16.5); WHITE BLOOD COUNT 6.8 X10^3/uL (3.6-10.0)
[2022-10-25 05:12] LABS: ALANINE AMINOTRANSFERASE 21 Units/L (12-78); ALBUMIN 2.7 g/dL (3.4-5.0); ALKALINE PHOSPHATASE 76 Units/L (46-116); ASPARTATE AMINO TRANSFERASE 28 Units/L (15-37); BLOOD UREA NITROGEN 8 mg/dL (7-18); CALCIUM 8.2 mg/dL (8.5-10.1); CARBON DIOXIDE 34.4 mmol/L (21-32); CHLORIDE 106 mmol/L (98-107); COR CA(FOR HYPOALB) 9.2 mg/dL (8.5-10.1); CREATININE 0.58 mg/dL (0.55-1.02); SODIUM 140 mmol/L (136-145); TOTAL PROTEIN 5.7 g/dL (6.4-8.2); eGFR NON BLACK RACES > 60 (>60)
[2022-10-25] MEDS: Atrovent NEB TX 0.02% NEB SCH ×3 (06:12→20:43)
[2022-10-25] MEDS: XOPENEX 1.25 MG/3 ML NEBULE NEB SCH ×3 (06:13→20:43)
[2022-10-25] MEDS: PULMICORT NEB TX 0.5 MG NEB SCH ×2 (08:29→20:43)
[2022-10-25] MEDS: FERROUS GLUCONATE PO SCH (08:36)
[2022-10-25] MEDS: ZESTRIL TAB 10 MG PO SCH (08:36)
[2022-10-25] MEDS: LEVAQUIN PREMIX IV 500 MG 500 MG/100 ML BAG IV SCH (09:07)
[2022-10-25] MEDS ORDERED: K-DUR TAB 20 MEQ PO PRN (09:24)
[2022-10-25] MEDS ORDERED: MAGNESIUM SULFATE 1 GRAM/100 mL PREMIX 1 G/100 ML BAG IV PRN (09:24)
[2022-10-25] MEDS ORDERED: MICRO K EXTEN CAP 10 MEQ PO PRN (09:24)
--- NOTE | 2022-10-25 11:59 | PCM.PROG ---
Progress Note Progress Note for Day of Date of Exam: 10/25/22 Subjective Subjective: Patient seen at bedside, no acute events overnight. She has been doing well. She reports feeling better. She states her cough is loosening up. She is being treated for AMS due to UTI and pneumonia. She remains on room air. Blood Cx x 1 did show CONS. Labs/imaging reviewed Hgb 11.6 CXR: b/l opacities concerning for pneumonia Urine Cx: no growth Plan: Continue IV antibiotics, repeat blood Cx. Continue nebs prn. Continue gentle hydration. Advised to ambulate as tolerated. Monitor AM labs/imaging. Past Medical Family Social History Allergies: Allergies Penicillins Allergy (Unknown, Verified 05/08/22 11:10) Vital Signs and I&O's Vital Signs: Temperature 98.6 F Pulse Rate [Left Brachial] 76 Pulse Rate 78 Respiratory Rate 20 Blood Pressure [Right Arm] 177/77 Blood Pressure [Left Arm] 163/74 Blood Pressure 150/67 O2 Sat by Pulse Oximetry 96 Intake and Output: Intake & Output 10/22/22 10/23/22 10/24/22 10/26/22 23:59 23:59 23:59 00:59 Intake Total 300 / 300 1455 / 1455 2598 / 2598 320 / 320 Output Total 2 / 2 Balance 300 / 300 1453 / 1453 2598 / 2598 320 / 320 Physical Exam Oriented: Normal Eyes: Normal Ear: Normal Nose: Normal Throat: Normal Respiratory: Generalized and Diminished Cardiovascular: Normal Auscultation: Bowel Sounds: Normal Tenderness: Normal Skin: Normal Musculoskeletal: Normal Psychiatric: Normal Mood Description: Calm Affect: Normal Speech Pattern: Clear and Appropriate Laboratory and Diagnostics Result Diagrams: 10/25/22 04:26 10/25/22 04:26 Labs: 10/23/22 09:41 Blood Blood Culture - Preliminary 10/23/22 09:34 Blood Blood Culture - Preliminary 10/22/22 19:43 Urine,Clean Catch Urine Culture - Final Laboratory WBC 6.8 X10^3/uL (3.6-10.0) 10/25/22 04:26 RBC 3.48 X10^6/uL (3.5-5.4) L 10/25/22 04:26 Hgb 11.5 g/dL (12.0-16.0) L 10/25/22 04:26 Hct 32.9 % (36.0-47.0) L 10/25/22 04:26 MCV 94.7 fL (80.0-100.0) 10/25/22 04:26 MCH 33.0 pg (27.0-34.0) 10/25/22 04:26 MCHC 34.8 g/dL (33.0-35.0) 10/25/22 04:26 RDW 13.7 % (11.6-16.5) 10/25/22 04:26 Plt Count 221 X10^3/uL (150.0-450.0) 10/25/22 04:26 MPV 8.1 fL (7.4-11.0) 10/25/22 04:26 Neut % (Auto) 57.8 % (42.0-75.0) 10/25/22 04:26 Lymph % (Auto) 27.2 % (21.0-51.0) 10/25/22 04:26 [place] % (Auto) 12.2 % (0.0-13.0) 10/25/22 04:26 Eos % (Auto) 2.3 % (0.9-2.9) 10/25/22 04:26 Baso % (Auto) 0.5 % (0.2-1.0) 10/25/22 04:26 Neut # (Auto) 3.9 x10^3/uL (2.2-4.8) 10/25/22 04:26 Lymph # (Auto) 1.9 X10^3/uL (1.3-2.9) 10/25/22 04:26 [place] # (Auto) 0.8 x10^3/uL (0.3-0.8) 10/25/22 04:26 Eos # (Auto) 0.2 x10^3/uL (0.0-0.2) 10/25/22 04:26 Baso # (Auto) 0.0 X10^3/uL (0.0-0.1) 10/25/22 04:26 Absolute Nucleated RBC 0.1 /100WBC 10/25/22 04:26 Sodium 140 mmol/L (136-145) 10/25/22 04:26 Corrected Sodium TNP 10/25/22 04:26 Potassium 3.8 mmol/L (3.5-5.1) 10/25/22 04:26 Chloride 106 mmol/L (98-107) 10/25/22 04:26 Carbon Dioxide 34.4 mmol/L (21-32) H 10/25/22 04:26 BUN 8 mg/dL (7-18) 10/25/22 04:26 Creatinine 0.58 mg/dL (0.55-1.02) 10/25/22 04:26 Est GFR (MDRD) Af Amer > 60 (>60) 10/25/22 04:26 Est GFR (MDRD) Non-Af > 60 (>60) 10/25/22 04:26 Glucose 85 mg/dL (65-99) 10/25/22 04:26 Calcium 8.2 mg/dL (8.5-10.1) L 10/25/22 04:26 Corrected Calcium 9.2 mg/dL (8.5-10.1) 10/25/22 04:26 Magnesium 1.9 mg/dL (2.0-2.9) L 10/25/22 04:26 Total Bilirubin 0.40 mg/dL (0.2-1.0) 10/25/22 04:26 AST 28 Units/L (15-37) 10/25/22 04:26 ALT 21 Units/L (12-78) 10/25/22 04:26 Alkaline Phosphatase 76 Units/L (46-116) 10/25/22 04:26 Total Protein 5.7 g/dL (6.4-8.2) L 10/25/22 04:26 Albumin 2.7 g/dL (3.4-5.0) L 10/25/22 04:26 Globulin 3.0 g/dL (2.5-4.5) 10/25/22 04:26 Albumin/Globulin Ratio 0.9 Ratio (1.1-2.1) L 10/25/22 04:26 Specimen Type Clean catch urine 10/22/22 19:43 Urine Color Yellow (YELLOW) 10/22/22 19:43 Urine Appearance Clear (CLEAR) 10/22/22 19:43 Urine pH 5.0 (5.0 - 8.0) 10/22/22 19:43 Ur Specific [place] 1.025 (1.000-1.030) 10/22/22 19:43 Urine Protein 1+ (NEGATIVE) 10/22/22 19:43 Urine Glucose (UA) Negative (NEGATIVE) 10/22/22 19:43 Urine Ketones Negative (NEGATIVE) 10/22/22 19:43 Urine Blood Negative (NEGATIVE) 10/22/22 19:43 Urine Nitrite Negative (NEGATIVE) 10/22/22 19:43 Urine Bilirubin Negative (NEGATIVE) 10/22/22 19:43 Urine Urobilinogen Normal (NORMAL) 10/22/22 19:43 Ur Leukocyte Esterase 3+ (NEGATIVE) 10/22/22 19:43 Urine RBC 0-2 /HPF (0-3) 10/22/22 19:43 Urine WBC 3-5 /HPF (0-5) 10/22/22 19:43 Ur Squamous Epith Cells Moderate /HPF (NEGATIVE) 10/22/22 19:43 Calcium Oxalate Crystal Moderate /HPF (NEGATIVE) 10/22/22 19:43 Urine Bacteria 1+ /HPF (NEGATIVE) 10/22/22 19:43 Urine Mucus Few /HPF (NEGATIVE) 10/22/22 19:43 Ur Culture Indicated? Yes/culture set up 10/22/22 19:43 Plan (1) Pneumonia: Status: Acute Qualifiers: Laterality: bilateral Lung location: unspecified part of lung Pneumonia type: due to unspecified organism Qualified Code(s): J18.9 - Pneumonia, unspecified organism (2) Altered mental status: Status: Acute Qualifiers: Altered mental status type: transient alteration of awareness Qualified Code(s): R40.4 - Transient alteration of awareness Plan: OBTAIN BRAIN CT (3) UTI (urinary tract infection): Status: Acute (4) Generalized weakness: Status: Acute (5) Hypertension: Status: Chronic Qualifiers: Hypertension type: primary hypertension Qualified Code(s): I10 - Essential (primary) hypertension (6) Hyperlipidemia: Status: Chronic Qualifiers: Hyperlipidemia type: mixed hyperlipidemia Qualified Code(s): E78.2 - Mixed hyperlipidemia
[2022-10-25] MEDS: ZOCOR TAB 40 MG PO SCH (21:18)
[2022-10-26 03:45] VITALS: BP 139/65
[2022-10-26 05:04] LABS: BASOPHILS # (AUTO) 0.1 X10^3/uL (0.0-0.1); BASOPHILS % (AUTO) 0.8 % (0.2-1.0); EOSINOPHILS # (AUTO) 0.2 x10^3/uL (0.0-0.2); EOSINOPHILS % (AUTO) 3.2 % (0.9-2.9); HEMATOCRIT 31.3 % (36.0-47.0); HEMOGLOBIN 11.1 g/dL (12.0-16.0); LYMPHOCYTES # (AUTO) 1.9 X10^3/uL (1.3-2.9); LYMPHOCYTES % (AUTO) 27.9 % (21.0-51.0); MEAN CORPUSCULAR HEMOGLOBIN 33.7 pg (27.0-34.0); MEAN CORPUSCULAR HGB CONC 35.3 g/dL (33.0-35.0); MEAN CORPUSCULAR VOLUME 95.4 fL (80.0-100.0); MEAN PLATELET VOLUME 8.1 fL (7.4-11.0); MONOCYTES # (AUTO) 0.8 x10^3/uL (0.3-0.8); MONOCYTES % (AUTO) 11.4 % (0.0-13.0); NEUTROPHILS # (AUTO) 3.9 x10^3/uL (2.2-4.8); NEUTROPHILS % (AUTO) 56.7 % (42.0-75.0); RED BLOOD COUNT 3.28 X10^6/uL (3.5-5.4); RED CELL DISTRIBUTION WIDTH 13.4 % (11.6-16.5); WHITE BLOOD COUNT 6.8 X10^3/uL (3.6-10.0)
[2022-10-26] MEDS: NS 1,000 ML IV 1,000 ML IV SCH ×2 (05:06→05:24)
[2022-10-26] MEDS: FORTAZ or TAZICEF VIAL INJ 1 G in NS 100 ML IV 100 ML IV SCH (05:11)
[2022-10-26 05:21] LABS: ALANINE AMINOTRANSFERASE 19 Units/L (12-78); ALBUMIN 2.6 g/dL (3.4-5.0); ALKALINE PHOSPHATASE 72 Units/L (46-116); ASPARTATE AMINO TRANSFERASE 18 Units/L (15-37); BLOOD UREA NITROGEN 12 mg/dL (7-18); CALCIUM 8.1 mg/dL (8.5-10.1); CARBON DIOXIDE 30.7 mmol/L (21-32); CHLORIDE 106 mmol/L (98-107); COR CA(FOR HYPOALB) 9.2 mg/dL (8.5-10.1); CREATININE 0.59 mg/dL (0.55-1.02); MAGNESIUM 2.2 mg/dL (2.0-2.9); SODIUM 140 mmol/L (136-145); TOTAL PROTEIN 5.3 g/dL (6.4-8.2); eGFR NON BLACK RACES > 60 (>60)
[2022-10-26] MEDS: Atrovent NEB TX 0.02% NEB SCH (06:15)
[2022-10-26] MEDS: XOPENEX 1.25 MG/3 ML NEBULE NEB SCH (06:15)
--- NOTE | 2022-10-26 08:55 | DR.H&P ---
H&P - History & Physical for Day of: H&P Date: 10/22/22 - Chief Complaint Chief Complaint: AMS, WEAKNESS, SOB - History of Present Illness History of Present Illness: IS A 82 YEAR OLD PATIENT OF OURS. HER FAMILY MEMBERS BROUGHT HER INTO THE OFFICE ON 10/22/22 DUE TO ALTERED MENTAL STATUS AND WEAKNESS. HER FAMILY MEMEBERS REPORT THAT SHE HAS HAD INCREASED CONFUSION AND WEAKNESS FOR THE PAST TWO TO THREE WEEKS. THEY REPORT THAT SHE HAS HAD UNSTEADY GAIT. HER DAUGHTER DENIED KNOWLEDGE OF ANY FEVER, DYSURIA OR COUGH, BUT REPORTS THAT PATIENT DID COMPLAIN OF SOME SHORTNESS OF BREATH EARLIER IN THE WEEK. HER PMH INCLUDES: HYPERLIPIDEMIA, HTN, AND ANEMIA. DECISION WAS MADE TO ADMIT PATIENT TO THE HOSPITAL FOR FURTHER EVALUATION AND TREATMENT. UPON EXAMINATION, PATIENT WAS NOTED TO BE DISORIENTED AND WAS UNABLE TO FOLLOW SIMPLE COMMANDS. ON ARRIVAL TO THE HOSPITAL, VITALS WERE: 97.9-74-18-100%-187/78. LABS WERE OBTAINED. WBC 7.5, RBC 3.75, HGB 12.4, HCT 36.2, PLT COUNT 244, SODIUM 141, POTASSIUM 4.1, CHLORIDE 105, BUN 16, CREATININE 0.65, GLUCOSE 148, CALCIUM 8.5, AST 22, ALT 19, ALK PHOS 83, TOTAL PROTEIN 6.3, ALBUMIN 3.2. URINALYSIS WAS OBTAINED AND REVEALED: WBC 3-5, RBC 0-2, LEUKOCYTES 3+, BACTERIA 1+. A URINE CULTURE WAS SET UP. A CHEST XRAY WAS OBTAINED AND REVEALED: Bilateral airspace opacities may represent pneumonia in the acute setting. Recommend follow up imaging to document resolution after appropriate treatment. SHE WAS STARTED ON NORMAL SALINE AT 50 ML/HR, FORTAZ 1G IV TID, LEVAQUIN 500MG IV DAILY, XOPENEX NEBS TID, ATROVENT NEBS TID, PULMICORT NEBS BID, FERROUS GLUCONATE 324MG DAILY, ZESTRIL 10MG DAILY, AND SIMVASTATIN 40MG HS. WE PLAN TO OBTAIN A BRAIN CT WITHOUT CONTRAST TO RULE OUT CVA. WE WILL ALSO OBTAIN AN AIT RESPIRATORY PANEL. WE WILL HAVE PHYSICAL THERAPY EVALUATE PATIENT. OTHERWISE, WE WILL FOLLOW-UP WITH AM LABS AND CONTINUE TO MONITOR. TIME SPENT ON CLINICAL ASSESSMENT, REVIWING LABS AND IMAGING, DECISION MAKING, AND DOCUMENTATION GREATER THAN 75 MINUTES. - Past Medical History Past Medical History: Anemia, Dyslipidemia, Hypertension - Past Surgical History Surgical History: No History - Family History Family Medical History: Coronary Artery Disease, Hypertension - Social History Does patient currently use any type of tobacco product: No Have you used tobacco products in the last 12 months: No Type of Tobacco Use: None Alcohol Use: None Drug Use: None - Medications Home Medications: Penicillins Allergy (Unknown, Verified 05/08/22 11:10) - Review of Systems Constitutional: Weakness. denies: Fever, Chills Eyes: No Symptoms Reported ENT: No Symptoms Reported Respiratory: Shortness of Breath, SOB with Excertion. denies: Cough, Sputum, Wheezing Cardiovascular: No Symptoms Reported Gastrointestinal: No Symptoms Reported Genitourinary: No Symptoms Reported Musculoskeletal: No Symptoms Reported Skin: No Symptoms Reported Neurological: Weakness, Confusion - Physical Exam Vital Signs: Temperature 99 F Pulse Rate [Left Brachial] 83 Pulse Rate 78 Respiratory Rate 20 Blood Pressure [Left Arm] 163/72 Blood Pressure 150/67 O2 Sat by Pulse Oximetry 97 Oriented: Not Oriented Eyes: Normal Ear: Normal Nose: Normal Throat: Normal Respiratory: Diminished Throughout Cardiovascular: Normal : Normal Auscultation: Bowel Sounds: Normal Palpation: Normal Tenderness: Normal Skin: Normal Musculoskeletal: Normal Psychiatric: Other (DISORIENTED ) Mood Description: Calm Affect: Flat Speech Pattern: Inappropriate - Assessment/Plan (1) Pneumonia Qualifiers: Pneumonia type: due to unspecified organism Laterality: bilateral Lung location: unspecified part of lung Qualified Code(s): J18.9 - Pneumonia, unspecified organism Status: Acute Plan: ADMIT, NORMAL SALINE AT 50 ML/HR, FORTAZ 1G IV TID, LEVAQUIN 500MG IV D AILY, XOPENEX NEBS TID, ATROVENT NEBS TID, PULMICORT NEBS BID, FERROUS GLUCONATE 324MG DAILY, ZESTRIL 10MG DAILY, AND SIMVASTATIN 40MG HS. MONITOR DAILY LABS AND CHEST XRAY (2) Altered mental status Qualifiers: Altered mental status type: transient alteration of awareness Qualified Code(s): R40.4 - Transient alteration of awareness Status: Acute Plan: OBTAIN BRAIN CT (3) Generalized weakness Status: Acute (4) Hypertension Qualifiers: Hypertension type: primary hypertension Qualified Code(s): I10 - Essential (primary) hypertension Status: Chronic (5) Hyperlipidemia Qualifiers: Hyperlipidemia type: mixed hyperlipidemia Qualified Code(s): E78.2 - Mixed hyperlipidemia Status: Chronic - Allergies Allergies/Adverse Reactions: Allergies Allergy/AdvReac Type Severity Reaction Status Date / Time Penicillins Allergy Unknown Verified 05/08/22 11:10
[2022-10-26] MEDS: FERROUS GLUCONATE PO SCH (09:00)
[2022-10-26] MEDS: ZESTRIL TAB 10 MG PO SCH (09:00)
[2022-10-26] MEDS: LEVAQUIN PREMIX IV 500 MG 500 MG/100 ML BAG IV SCH (09:00)
[2022-10-26] MEDS: PULMICORT NEB TX 0.5 MG NEB SCH (09:05)
[2022-10-26] MEDS ORDERED: LOVENOX INJ 40 MG SYR SC SCH (11:00)
--- NOTE | 2022-10-26 11:13 | PCM.PROG ---
Progress Note - Progress Note for Day of Date of Exam: 10/23/22 - Subjective Subjective: IS A 82 YEAR OLD PATIENT OF OURS. SHE WAS ADMITTED OBSERVATION STATUS FOR TREATMENT OF BILATERAL PNEUMONIA, ALTERED MENTAL STATUS, AND GENERALIZED WEAKNESS. SHE HAS A PMH OF HTN, HYPERLIPIDEMIA, AND ANEMIA. HER FAMILY MEMEBERS REPORT THAT SHE HAS HAD INCREASED CONFUSION AND WEAKNESS FOR THE PAST TWO TO THREE WEEKS. THEY REPORT THAT SHE HAS HAD UNSTEADY GAIT. THEY REPORT THAT SHE IS NO LONGER ABLE TO PERFORM ADLs OR CARE FOR HERSELF AT HOME AND WISH FOR FLOOR REPRESENTATIVE CARE PLACEMENT. UPON EXAMINATION, TODAY, PATIENT IS ALERT AND ORIENTED, LYING IN BED ON MORNING ROUNDS. SHE COMPLAINS OF SHORTNESS OF BREATH AT TIMES AND WEAKNESS, BUT DENIES OTHER COMPLAINTS. ON EXAMINATION, HEART IS REGULAR IN RATE AND RHYTHM. BILATERAL LUNGS ARE NOTED WITH DIMINISHED LUNG SOUNDS THROUGHOUT. ABDOMEN IS ROUND, SOFT, AND NON-TENDER WITH NORMAL BOWEL SOUNDS NOTED IN ALL QUADRANTS. NO UPPER OR LOWER EXTREMITY EDEMA NOTED. HER VITALS THIS MORNING WERE: 99.0-83-20-97%-163/72. LABS WERE OBTAINED. WBC 7.5, RBC 3.55, HGB 11.7, HCT 33.9, PLT COUNT 239, SODIUM 139, POTASSIUM 4.0, CHLORIDE 105, BUN 11, CREATININE 0.55, GLUCOSE 88, CALCIUM 8.1, AST 18, ALT 18, ALK PHOS 70, TOTAL PROTEIN 5.4, ALBUMIN 2.8. URINE AND BLOOD CULTURES ARE PENDING. AN AIT RESPIRATORY PANEL IS ALSO PENDING. SHE IS CURRENTLY RECEIVING NORMAL SALINE AT 50 ML/HR, FORTAZ 1G IV TID, LEVAQUIN 500MG IV DAILY, XOPENEX NEBS TID, ATROVENT NEBS TID, PULMICORT NEBS BID, FERROUS GLUCONATE 324MG DAILY, ZESTRIL 10MG DAILY, AND SIMVASTATIN 40MG HS. A BRAIN CT WAS OBTAINED THIS MORNING AND REVEALED: No acute intracranial findings with moderate cerebral atrophy and probable chronic small vessel ischemic change. No prior studies for comparison. WE WILL HAVE PHYSICAL THERAPY EVALUATE PATIENT. OTHERWISE, WE WILL FOLLOW-UP WITH AM LABS AND CONTINUE TO MONITOR. TIME SPENT ON CLINICAL ASSESSMENT, REVIWING LABS AND IMAGING, DECISION MAKING, AND DOCUMENTATION GREATER THAN 45 MINUTES. - Past Medical Family Social History Past Med/Fam/Surg Hx: No changes since H&P Allergies: Allergies Penicillins Allergy (Unknown, Verified 05/08/22 11:10) - Review of Systems ROS: No change since H&P - Vital Signs and I&O's Vital Signs: Temperature 99.1 F Pulse Rate [Left Brachial] 65 Pulse Rate 89 Respiratory Rate 16 Blood Pressure [Right Arm] 154/69 Blood Pressure [Left Arm] 139/65 Blood Pressure 150/67 O2 Sat by Pulse Oximetry 98 Intake and Output: Intake & Output 10/23/22 10/24/22 10/25/22 10/26/22 10:59 10:59 11:59 11:59 Intake Total 1587 / 1587 Output Total Balance 1587 / 1587 - Physical Exam Oriented: Normal Eyes: Normal Ear: Normal Nose: Normal Throat: Normal Respiratory: Generalized, Diminished Cardiovascular: Normal : Normal Auscultation: Bowel Sounds: Normal Palpation: Normal Tenderness: Normal Skin: Normal Musculoskeletal: Normal Psychiatric: Normal Mood Description: Calm Affect: Normal Speech Pattern: Clear, Appropriate - Laboratory and Diagnostics Result Diagrams: 10/26/22 04:26 10/26/22 04:26 Labs: 10/23/22 09:34 Blood Blood Culture - Final 10/23/22 09:41 Blood Blood Culture - Preliminary 10/22/22 19:43 Urine,Clean Catch Urine Culture - Final Laboratory WBC 6.8 X10^3/uL (3.6-10.0) 10/26/22 04:26 RBC 3.28 X10^6/uL (3.5-5.4) L 10/26/22 04:26 Hgb 11.1 g/dL (12.0-16.0) L 10/26/22 04:26 Hct 31.3 % (36.0-47.0) L 10/26/22 04:26 MCV 95.4 fL (80.0-100.0) 10/26/22 04:26 MCH 33.7 pg (27.0-34.0) 10/26/22 04:26 MCHC 35.3 g/dL (33.0-35.0) H 10/26/22 04:26 RDW 13.4 % (11.6-16.5) 10/26/22 04:26 Plt Count 212 X10^3/uL (150.0-450.0) 10/26/22 04:26 MPV 8.1 fL (7.4-11.0) 10/26/22 04:26 Neut % (Auto) 56.7 % (42.0-75.0) 10/26/22 04:26 Lymph % (Auto) 27.9 % (21.0-51.0) 10/26/22 04:26 [place] % (Auto) 11.4 % (0.0-13.0) 10/26/22 04:26 Eos % (Auto) 3.2 % (0.9-2.9) H 10/26/22 04:26 Baso % (Auto) 0.8 % (0.2-1.0) 10/26/22 04:26 Neut # (Auto) 3.9 x10^3/uL (2.2-4.8) 10/26/22 04:26 Lymph # (Auto) 1.9 X10^3/uL (1.3-2.9) 10/26/22 04:26 [place] # (Auto) 0.8 x10^3/uL (0.3-0.8) 10/26/22 04:26 Eos # (Auto) 0.2 x10^3/uL (0.0-0.2) 10/26/22 04:26 Baso # (Auto) 0.1 X10^3/uL (0.0-0.1) 10/26/22 04:26 Absolute Nucleated RBC 0.0 /100WBC 10/26/22 04:26 Sodium 140 mmol/L (136-145) 10/26/22 04:26 Corrected Sodium TNP 10/26/22 04:26 Potassium 4.0 mmol/L (3.5-5.1) 10/26/22 04:26 Chloride 106 mmol/L (98-107) 10/26/22 04:26 Carbon Dioxide 30.7 mmol/L (21-32) 10/26/22 04:26 BUN 12 mg/dL (7-18) 10/26/22 04:26 Creatinine 0.59 mg/dL (0.55-1.02) 10/26/22 04:26 Est GFR (MDRD) Af Amer > 60 (>60) 10/26/22 04:26 Est GFR (MDRD) Non-Af > 60 (>60) 10/26/22 04:26 Glucose 86 mg/dL (65-99) 10/26/22 04:26 Calcium 8.1 mg/dL (8.5-10.1) L 10/26/22 04:26 Corrected Calcium 9.2 mg/dL (8.5-10.1) 10/26/22 04:26 Magnesium 2.2 mg/dL (2.0-2.9) 10/26/22 04:26 Total Bilirubin 0.30 mg/dL (0.2-1.0) 10/26/22 04:26 AST 18 Units/L (15-37) 10/26/22 04:26 ALT 19 Units/L (12-78) 10/26/22 04:26 Alkaline Phosphatase 72 Units/L (46-116) 10/26/22 04:26 Total Protein 5.3 g/dL (6.4-8.2) L 10/26/22 04:26 Albumin 2.6 g/dL (3.4-5.0) L 10/26/22 04:26 Globulin 2.7 g/dL (2.5-4.5) 10/26/22 04:26 Albumin/Globulin Ratio 1.0 Ratio (1.1-2.1) L 10/26/22 04:26 Specimen Type Clean catch urine 10/22/22 19:43 Urine Color Yellow (YELLOW) 10/22/22 19:43 Urine Appearance Clear (CLEAR) 10/22/22 19:43 Urine pH 5.0 (5.0 - 8.0) 10/22/22 19:43 Ur Specific [place] 1.025 (1.000-1.030) 10/22/22 19:43 Urine Protein 1+ (NEGATIVE) 10/22/22 19:43 Urine Glucose (UA) Negative (NEGATIVE) 10/22/22 19:43 Urine Ketones Negative (NEGATIVE) 10/22/22 19:43 Urine Blood Negative (NEGATIVE) 10/22/22 19:43 Urine Nitrite Negative (NEGATIVE) 10/22/22 19:43 Urine Bilirubin Negative (NEGATIVE) 10/22/22 19:43 Urine Urobilinogen Normal (NORMAL) 10/22/22 19:43 Ur Leukocyte Esterase 3+ (NEGATIVE) 10/22/22 19:43 Urine RBC 0-2 /HPF (0-3) 10/22/22 19:43 Urine WBC 3-5 /HPF (0-5) 10/22/22 19:43 Ur Squamous Epith Cells Moderate /HPF (NEGATIVE) 10/22/22 19:43 Calcium Oxalate Crystal Moderate /HPF (NEGATIVE) 10/22/22 19:43 Urine Bacteria 1+ /HPF (NEGATIVE) 10/22/22 19:43 Urine Mucus Few /HPF (NEGATIVE) 10/22/22 19:43 Ur Culture Indicated? Yes/culture set up 10/22/22 19:43 Resp Viral Panel (PCR) See scanned report 10/23/22 10:20 - Plan (1) Pneumonia Status: Acute Qualifiers: Pneumonia type: due to unspecified organism Laterality: bilateral Lung location: unspecified part of lung Qualified Code(s): J18.9 - Pneumonia, unspecified organism Plan: NORMAL SALINE AT 50 ML/HR, FORTAZ 1G IV TID, LEVAQUIN 500MG IV DAILY, XOPENEX NEBS TID, ATROVENT NEBS TID, PULMICORT NEBS BID, FERROUS GLUCONATE 324MG DAILY, ZESTRIL 10MG DAILY, AND SIMVASTATIN 40MG HS. MONITOR DAILY LABS AND CHEST XRAY (2) Altered mental status Status: Acute Qualifiers: Altered mental status type: transient alteration of awareness Qualified Code(s): R40.4 - Transient alteration of awareness (3) Generalized weakness Status: Acute (4) Hypertension Status: Chronic Qualifiers: Hypertension type: primary hypertension Qualified Code(s): I10 - Essential (primary) hypertension (5) Hyperlipidemia Status: Chronic Qualifiers: Hyperlipidemia type: mixed hyperlipidemia Qualified Code(s): E78.2 - Mixed hyperlipidemia
--- NOTE | 2022-10-26 11:46 | RAD ---
HISTORYSOBSTUDYCHEST, 1 [id number] cardiomediastinal silhouette is stable. Similar right-sided opacities. Improved aeration in the left lung. No pneumothorax or effusion. The bony thorax appears intact.IMPRESSIONPersistent right-sided opacities concerning for pneumonia. Continued follow-up recommended.Electronically signed by: UZIEL LYMAN (Oct 26, 2022 11:45:06)
== END 2022-10-26 13:07 | disposition home or self-care (01) ==
LOC: MED/SURG
PROVIDERS: ADMIT Internal Medicine; ATTEND Internal Medicine
DX: N39.0 Urinary tract infection, site not specified; J18.8 Other pneumonia, unspecified organism; I10 Essential (primary) hypertension; E78.2 Mixed hyperlipidemia; R53.1 Weakness; Z20.822 Contact with and (suspected) exposure to COVID-19; R06.02 Shortness of breath; R26.81 Unsteadiness on feet; R40.4 Transient alteration of awareness; I25.10 Atherosclerotic heart disease of native coronary artery without angina pectoris